=== PATIENT | female | born 1955 | race African-American/Black ===

== ENCOUNTER 2023-04-05 09:09 | Inpatient (IN) | payer OTHER ==
[2023-04-05] MEDS ORDERED: DIPHTH,PERTUSS(ACELL),TET 0.5 ML DISP.SYRIN IM ONE ×3 (09:58→10:27)
[2023-04-05 10:05] LABS: VENOUS BASE EXCESS 2.6 mmol/L (-2-2); VENOUS O2 SATURATION 56.5 % (70-80); VENOUS PCO2 56.2 mmHg (38-52); VENOUS PH 7.337 (7.310-7.410)
[2023-04-05 10:06] LABS: BASO % 0.9 % (0-2.0); EOS % 1.2 % (0-4.5); HEMATOCRIT 34.4 % (32.4-45.2); HEMOGLOBIN 10.8 GM/dL (10.7-15.3); LYMPH % 11.2 % (8-40); MCH 26.3 pg (25.7-33.7); MCHC 31.5 g/dl (32.0-36.0); MEAN CELL VOLUME 83.5 fl (80-96); MEAN PLT VOLUME 9.1 fl (7.5-11.1); MONO % 10.7 % (3.8-10.2); PLATELET COUNT 406 10^3/uL (134-434); RBC 4.12 M/mm3 (3.60-5.2); RDW 21.3 % (11.6-15.6)
[2023-04-05 10:19] LABS: CHLORIDE 95 mmol/L (98-107); POTASSIUM 3.7 mmol/L (3.5-5.1); SODIUM 137 mmol/L (136-145)
[2023-04-05 10:19] LABS: INR 1.24 (0.83-1.09); PROTHROMBIN TIME (PATIENT) 14.3 SEC (9.7-13.0)
[2023-04-05] MEDS ORDERED: ACETAMINOPHEN 1000 MG/100 ML BAG IVPB ONE (10:19)
[2023-04-05] MEDS ORDERED: ACETAMINOPHEN INJECTION 100 ML IVPB ONE (10:20)
[2023-04-05 10:21] LABS: ACTIVATED PTT 32.8 SECONDS (25.2-36.5)
[2023-04-05 10:21] LABS: CALCIUM 10.3 mg/dL (8.5-10.1)
[2023-04-05 10:23] LABS: ALBUMIN 2.6 g/dl (3.4-5.0); ANION GAP 13 MMOL/L (8-16); BLOOD UREA NITROGEN 63.9 mg/dL (7-18); CO2 30 mmol/L (21-32); GLUCOSE,RANDOM 108 mg/dL (74-106)
[2023-04-05 10:25] LABS: SGOT/AST 33 U/L (15-37); SGPT/ALT 27 U/L (13-61)
[2023-04-05 10:27] LABS: BILIRUBIN,TOTAL 0.3 mg/dL (0.2-1); TOT PROT 8.9 g/dl (6.4-8.2)
[2023-04-05 10:28] LABS: ALK PHOS 133 U/L (45-117)
[2023-04-05 10:37] LABS: CREATININE 7.6 mg/dL (0.55-1.3)
[2023-04-05] MEDS ORDERED: SODIUM CHLORIDE 250 ML IV PRN (16:14)
[2023-04-05] MEDS: ATORVASTATIN CA 40 MG TABLET (FP) PEG SCH (23:02)
[2023-04-06] MEDS ORDERED: PIPERACILLIN/TAZOB 2.25 GM 2.25 GM in DEXTROSE 5%-WATER - 50 ML IVPB SCH ×2 (02:45→06:15)
[2023-04-06] MEDS ORDERED: SODIUM CHLORIDE 1,000 ML IV STA (08:04)
[2023-04-06] MEDS ORDERED: SODIUM CHLORIDE 500 ML IV STA (09:15)
[2023-04-06] MEDS: SERTRALINE HCL 50 MG TABLET (FP) PEG SCH (09:28)
[2023-04-06] MEDS: valACYclovir HCL 500 MG TABLET (FP) PEG SCH (09:28)
[2023-04-06] MEDS ORDERED: levETIRAcetam 500 MG/5 ML ORAL SOLUTION (UNIT-DOSE CUPS) PEG SCH (10:00)
[2023-04-06 10:07] LABS: BASO % 1.9 % (0-2.0); EOS % 0.3 % (0-4.5); HEMATOCRIT 30.1 % (32.4-45.2); HEMOGLOBIN 9.3 GM/dL (10.7-15.3); LYMPH % 7.5 % (8-40); MCHC 30.8 g/dl (32.0-36.0); MEAN CELL VOLUME 84.4 fl (80-96); MONO % 4.4 % (3.8-10.2); NEUT % 85.9 % (42.8-82.8); PLATELET COUNT 268 10^3/uL (134-434); RBC 3.57 M/mm3 (3.60-5.2); RDW 21.2 % (11.6-15.6); WHITE BLOOD COUNT 10.6 K/mm3 (4.0-10.0)
[2023-04-06 10:36] LABS: POTASSIUM 3.4 mmol/L (3.5-5.1)
[2023-04-06 10:38] LABS: ALBUMIN 2.3 g/dl (3.4-5.0); CALCIUM 9.2 mg/dL (8.5-10.1)
[2023-04-06] MEDS ORDERED: SODIUM CHLORIDE 250 ML IV PRN (10:39)
[2023-04-06 10:41] LABS: CREATININE 4.5 mg/dL (0.55-1.3)
[2023-04-06 10:43] LABS: BILIRUBIN,TOTAL 0.4 mg/dL (0.2-1)
[2023-04-06 10:44] LABS: TOT PROT 7.4 g/dl (6.4-8.2)
[2023-04-06 11:28] LABS: BLOOD UREA NITROGEN 24.6 mg/dL (7-18)
[2023-04-06] MEDS: MEROPENEM 1 GM in DEXTROSE 5%-WATER 100 ML IVPB SCH (13:26)
[2023-04-06] MEDS: levETIRAcetam 500 MG/5 ML ORAL SOLUTION (UNIT-DOSE CUPS) PEG SCH (23:05)
[2023-04-06] MEDS: ATORVASTATIN CA 40 MG TABLET (FP) PEG SCH (23:05)
[2023-04-07] MEDS ORDERED: LACTATED RINGERS SOLUTION 1,000 ML/1,000 ML INFUS.BAG IV ONE (02:02)
[2023-04-07] MEDS ORDERED: SODIUM CHLORIDE 500 ML IV STA (03:01)
[2023-04-07 10:41] LABS: BASO % 0.7 % (0-2.0); EOS % 1.3 % (0-4.5); HEMATOCRIT 31.3 % (32.4-45.2); HEMOGLOBIN 9.5 GM/dL (10.7-15.3); LYMPH % 13.7 % (8-40); MCH 25.7 pg (25.7-33.7); MCHC 30.2 g/dl (32.0-36.0); MEAN CELL VOLUME 85.1 fl (80-96); MEAN PLT VOLUME 9.7 fl (7.5-11.1); MONO % 13.5 % (3.8-10.2); NEUT % 70.8 % (42.8-82.8); PLATELET COUNT 265 10^3/uL (134-434); RBC 3.67 M/mm3 (3.60-5.2); RDW 20.7 % (11.6-15.6); WHITE BLOOD COUNT 8.3 K/mm3 (4.0-10.0)
[2023-04-07 10:58] LABS: POTASSIUM 3.3 mmol/L (3.5-5.1)
[2023-04-07] MEDS: levETIRAcetam 500 MG/5 ML ORAL SOLUTION (UNIT-DOSE CUPS) PEG SCH ×2 (11:07→22:24)
[2023-04-07] MEDS: HEPARIN NA (PORCINE) 5,000 UNITS/ML 1ML VIAL SQ SCH ×2 (11:07→22:24)
[2023-04-07] MEDS: SERTRALINE HCL 50 MG TABLET (FP) PEG SCH (11:07)
[2023-04-07 11:08] LABS: ALBUMIN 2.2 g/dl (3.4-5.0); CALCIUM 9.3 mg/dL (8.5-10.1)
[2023-04-07] MEDS: MEROPENEM 1 GM in DEXTROSE 5%-WATER 100 ML IVPB SCH (11:08)
[2023-04-07] MEDS: valACYclovir HCL 500 MG TABLET (FP) PEG SCH (11:09)
[2023-04-07 11:12] LABS: CREATININE 6.1 mg/dL (0.55-1.3)
[2023-04-07 11:13] LABS: BILIRUBIN,TOTAL 0.5 mg/dL (0.2-1)
[2023-04-07] MEDS: ATORVASTATIN CA 40 MG TABLET (FP) PEG SCH (22:24)
[2023-04-08] MEDS ORDERED: SODIUM CHLORIDE 500 ML IV STA (01:26)
[2023-04-08] MEDS: SERTRALINE HCL 50 MG TABLET (FP) PEG SCH (09:08)
[2023-04-08] MEDS: MEROPENEM 1 GM in DEXTROSE 5%-WATER 100 ML IVPB SCH (09:08)
[2023-04-08 09:09] LABS: BASO % 0.7 % (0-2.0); HEMATOCRIT 32.3 % (32.4-45.2); HEMOGLOBIN 9.8 GM/dL (10.7-15.3); LYMPH % 18.1 % (8-40); MCH 25.4 pg (25.7-33.7); MCHC 30.2 g/dl (32.0-36.0); MEAN CELL VOLUME 84.1 fl (80-96); MEAN PLT VOLUME 9.7 fl (7.5-11.1); MONO % 12.4 % (3.8-10.2); NEUT % 66.8 % (42.8-82.8); PLATELET COUNT 305 10^3/uL (134-434); RBC 3.84 M/mm3 (3.60-5.2); RDW 20.6 % (11.6-15.6); WHITE BLOOD COUNT 5.9 K/mm3 (4.0-10.0)
[2023-04-08] MEDS: levETIRAcetam 500 MG/5 ML ORAL SOLUTION (UNIT-DOSE CUPS) PEG SCH ×2 (09:09→21:26)
[2023-04-08] MEDS: valACYclovir HCL 500 MG TABLET (FP) PEG SCH (09:09)
[2023-04-08] MEDS: HEPARIN NA (PORCINE) 5,000 UNITS/ML 1ML VIAL SQ SCH ×2 (09:09→21:26)
[2023-04-08 09:33] LABS: POTASSIUM 3.5 mmol/L (3.5-5.1)
[2023-04-08 09:54] LABS: ALBUMIN 2.3 g/dl (3.4-5.0); BLOOD UREA NITROGEN 19.2 mg/dL (7-18)
[2023-04-08 09:56] LABS: CALCIUM 9.9 mg/dL (8.5-10.1)
[2023-04-08 09:57] LABS: CREATININE 4.1 mg/dL (0.55-1.3)
[2023-04-08 09:58] LABS: BILIRUBIN,TOTAL 0.2 mg/dL (0.2-1); TOT PROT 7.5 g/dl (6.4-8.2)
[2023-04-08] MEDS ORDERED: SODIUM CHLORIDE 250 ML IV PRN (11:52)
[2023-04-08] MEDS: ATORVASTATIN CA 40 MG TABLET (FP) PEG SCH (21:26)
[2023-04-09] MEDS: MEROPENEM 1 GM in DEXTROSE 5%-WATER 100 ML IVPB SCH ×2 (10:00→11:22)
[2023-04-09] MEDS: SERTRALINE HCL 50 MG TABLET (FP) PEG SCH ×2 (10:00→11:21)
[2023-04-09] MEDS: valACYclovir HCL 500 MG TABLET (FP) PEG SCH ×2 (10:00→11:23)
[2023-04-09] MEDS: levETIRAcetam 500 MG/5 ML ORAL SOLUTION (UNIT-DOSE CUPS) PEG SCH ×3 (10:00→22:58)
[2023-04-09 14:02] LABS: HEMOGLOBIN 9.4 GM/dL (10.7-15.3); MCH 25.9 pg (25.7-33.7); MCHC 31.5 g/dl (32.0-36.0); MEAN CELL VOLUME 82.2 fl (80-96); MEAN PLT VOLUME 9.1 fl (7.5-11.1); PLATELET COUNT 327 10^3/uL (134-434); RBC 3.65 M/mm3 (3.60-5.2); RDW 20.8 % (11.6-15.6); WHITE BLOOD COUNT 9.1 K/mm3 (4.0-10.0)
[2023-04-09 14:24] LABS: POTASSIUM 3.2 mmol/L (3.5-5.1)
[2023-04-09 14:26] LABS: BLOOD UREA NITROGEN 35.2 mg/dL (7-18)
[2023-04-09] MEDS: HEPARIN NA (PORCINE) 5,000 UNITS/ML 1ML VIAL SQ SCH (22:58)
[2023-04-09] MEDS: ATORVASTATIN CA 40 MG TABLET (FP) PEG SCH (22:58)
[2023-04-10] MEDS: ACETAMINOPHEN 650 MG/20.3 ML ORAL SOLUTION (CUPS) GT PRN (09:20)
[2023-04-10] MEDS: levETIRAcetam 500 MG/5 ML ORAL SOLUTION (UNIT-DOSE CUPS) PEG SCH ×2 (09:20→21:38)
[2023-04-10] MEDS: MEROPENEM 1 GM in DEXTROSE 5%-WATER 100 ML IVPB SCH (09:21)
[2023-04-10] MEDS: SERTRALINE HCL 50 MG TABLET (FP) PEG SCH (09:21)
[2023-04-10] MEDS: valACYclovir HCL 500 MG TABLET (FP) PEG SCH (09:21)
[2023-04-10 11:57] LABS: HEMATOCRIT 30.2 % (32.4-45.2); HEMOGLOBIN 9.5 GM/dL (10.7-15.3); MCH 25.9 pg (25.7-33.7); MCHC 31.5 g/dl (32.0-36.0); MEAN CELL VOLUME 82.2 fl (80-96); MEAN PLT VOLUME 7.9 fl (7.5-11.1); PLATELET COUNT 313 10^3/uL (134-434); RBC 3.67 M/mm3 (3.60-5.2); RDW 20.9 % (11.6-15.6); WHITE BLOOD COUNT 6.8 K/mm3 (4.0-10.0)
[2023-04-10 12:13] LABS: POTASSIUM 3.6 mmol/L (3.5-5.1)
[2023-04-10 12:15] LABS: CALCIUM 10.1 mg/dL (8.5-10.1)
[2023-04-10 12:16] LABS: ALBUMIN 2.2 g/dl (3.4-5.0); BLOOD UREA NITROGEN 22.6 mg/dL (7-18)
[2023-04-10 12:18] LABS: CREATININE 4.4 mg/dL (0.55-1.3)
[2023-04-10 12:21] LABS: BILIRUBIN,TOTAL 0.7 mg/dL (0.2-1); TOT PROT 7.2 g/dl (6.4-8.2)
[2023-04-10 12:23] LABS: ANISOCYTOSIS 1+; MACROCYTOSIS 1+
[2023-04-10] MEDS: ATORVASTATIN CA 40 MG TABLET (FP) PEG SCH (21:38)
[2023-04-11] MEDS ORDERED: SODIUM CHLORIDE 250 ML IV PRN (09:48)
[2023-04-11] MEDS ORDERED: EPOETIN ALFA-EPBX 3,000 UNIT/ML VIAL SQ ONE (10:00)
[2023-04-11] MEDS ORDERED: ALTEPLASE (CATHFLO) 2 MG/2 ML VIAL CVP ONE ×2 (10:00→10:15)
[2023-04-11] MEDS: valACYclovir HCL 500 MG TABLET (FP) PEG SCH (10:49)
[2023-04-11] MEDS: SERTRALINE HCL 50 MG TABLET (FP) PEG SCH (10:49)
[2023-04-11] MEDS: levETIRAcetam 500 MG/5 ML ORAL SOLUTION (UNIT-DOSE CUPS) PEG SCH ×2 (10:49→22:14)
[2023-04-11] MEDS: MEROPENEM 1 GM in DEXTROSE 5%-WATER 100 ML IVPB SCH (10:50)
[2023-04-11 10:52] LABS: BASO % 0.6 % (0-2.0); EOS % 1.5 % (0-4.5); HEMATOCRIT 28.9 % (32.4-45.2); HEMOGLOBIN 8.9 GM/dL (10.7-15.3); LYMPH % 15.1 % (8-40); MCH 25.8 pg (25.7-33.7); MCHC 30.7 g/dl (32.0-36.0); MEAN CELL VOLUME 83.9 fl (80-96); MEAN PLT VOLUME 9.9 fl (7.5-11.1); MONO % 9.6 % (3.8-10.2); NEUT % 73.2 % (42.8-82.8); PLATELET COUNT 376 10^3/uL (134-434); RBC 3.45 M/mm3 (3.60-5.2); RDW 20.4 % (11.6-15.6); WHITE BLOOD COUNT 8.9 K/mm3 (4.0-10.0)
[2023-04-11 11:13] LABS: BLOOD UREA NITROGEN 35.1 mg/dL (7-18)
[2023-04-11 11:14] LABS: CALCIUM 10.2 mg/dL (8.5-10.1); CO2 31 mmol/L (21-32)
[2023-04-11 11:15] LABS: ALBUMIN 2.2 g/dl (3.4-5.0); GLUCOSE,RANDOM 87 mg/dL (74-106)
[2023-04-11 11:18] LABS: CREATININE 5.9 mg/dL (0.55-1.3); LDH 248 U/L (84-246); SGOT/AST 35 U/L (15-37); SGPT/ALT 18 U/L (13-61)
[2023-04-11 11:19] LABS: BILIRUBIN,TOTAL 0.4 mg/dL (0.2-1); TOT PROT 7.1 g/dl (6.4-8.2)
[2023-04-11 11:20] LABS: ALK PHOS 123 U/L (45-117)
[2023-04-11 12:25] LABS: CHLORIDE 100 mmol/L (98-107); POTASSIUM 3.9 mmol/L (3.5-5.1); SODIUM 137 mmol/L (136-145)
[2023-04-11 14:44] VITALS: BMI 21.1
[2023-04-11] MEDS: ALBUMIN HUMAN 25% 12.5 GM/50 ML VIAL IV SCH ×4 (15:56→18:05)
[2023-04-11] MEDS: ACETAMINOPHEN 650 MG/20.3 ML ORAL SOLUTION (CUPS) GT PRN (22:14)
[2023-04-11] MEDS: ATORVASTATIN CA 40 MG TABLET (FP) PEG SCH (22:14)
[2023-04-11] MEDS: HEPARIN NA (PORCINE) 5,000 UNITS/ML 1ML VIAL SQ SCH (22:15)
[2023-04-12] MEDS: ACETAMINOPHEN 650 MG/20.3 ML ORAL SOLUTION (CUPS) GT PRN (08:52)
[2023-04-12 09:47] LABS: BASO % 0.7 % (0-2.0); EOS % 1.5 % (0-4.5); HEMATOCRIT 30.4 % (32.4-45.2); HEMOGLOBIN 9.5 GM/dL (10.7-15.3); LYMPH % 18.5 % (8-40); MCH 25.6 pg (25.7-33.7); MCHC 31.2 g/dl (32.0-36.0); MEAN CELL VOLUME 82.1 fl (80-96); MEAN PLT VOLUME 9.1 fl (7.5-11.1); MONO % 11.3 % (3.8-10.2); PLATELET COUNT 362 10^3/uL (134-434); RBC 3.71 M/mm3 (3.60-5.2); RDW 20.7 % (11.6-15.6); WHITE BLOOD COUNT 6.6 K/mm3 (4.0-10.0)
[2023-04-12 10:26] LABS: POTASSIUM 3.9 mmol/L (3.5-5.1)
[2023-04-12 10:28] LABS: CALCIUM 9.8 mg/dL (8.5-10.1)
[2023-04-12 10:29] LABS: ALBUMIN 2.5 g/dl (3.4-5.0); BLOOD UREA NITROGEN 17.2 mg/dL (7-18)
[2023-04-12 10:32] LABS: CREATININE 3.5 mg/dL (0.55-1.3)
[2023-04-12 10:33] LABS: BILIRUBIN,TOTAL 0.2 mg/dL (0.2-1); TOT PROT 7.1 g/dl (6.4-8.2)
[2023-04-12] MEDS: MEROPENEM 1 GM in DEXTROSE 5%-WATER 100 ML IVPB SCH (10:52)
[2023-04-12] MEDS: valACYclovir HCL 500 MG TABLET (FP) PEG SCH (10:52)
[2023-04-12] MEDS: APIXABAN 5 MG TABLET PEG SCH ×2 (10:52→21:32)
[2023-04-12] MEDS: SERTRALINE HCL 50 MG TABLET (FP) PEG SCH (10:52)
[2023-04-12] MEDS: levETIRAcetam 500 MG/5 ML ORAL SOLUTION (UNIT-DOSE CUPS) PEG SCH ×2 (10:52→21:32)
[2023-04-12] MEDS: CEFTRIAXONE 1 GM in DEXTROSE 5%-WATER - 50 ML IVPB SCH (12:40)
[2023-04-12 14:01] LABS: BF WBC & OTHER NUCLEATED CELLS 353 /mm3; BODY FLUID MACROPHAGES 12 %; BODY FLUID MESOTHELIAL 1 %; BODY FLUID MONOCYTE 18 %
[2023-04-12] MEDS: ATORVASTATIN CA 40 MG TABLET (FP) PEG SCH (21:32)
[2023-04-13] MEDS: APIXABAN 5 MG TABLET PEG SCH ×2 (09:14→23:27)
[2023-04-13] MEDS: valACYclovir HCL 500 MG TABLET (FP) PEG SCH (09:14)
[2023-04-13] MEDS: SERTRALINE HCL 50 MG TABLET (FP) PEG SCH (09:14)
[2023-04-13] MEDS: levETIRAcetam 500 MG/5 ML ORAL SOLUTION (UNIT-DOSE CUPS) PEG SCH ×2 (09:14→23:27)
[2023-04-13] MEDS: CEFTRIAXONE 1 GM in DEXTROSE 5%-WATER - 50 ML IVPB SCH (09:15)
[2023-04-13] MEDS: ALBUTEROL SO4 2.5/IPRATROPIUM 0.5 INH SOL 3 ML VIAL.NEB. NEB SCH ×2 (15:57→20:13)
[2023-04-13] MEDS: ATORVASTATIN CA 40 MG TABLET (FP) PEG SCH (23:27)
[2023-04-14] MEDS: ALBUTEROL SO4 2.5/IPRATROPIUM 0.5 INH SOL 3 ML VIAL.NEB. NEB SCH ×4 (07:45→20:08)
[2023-04-14 09:34] LABS: BASO % 1.5 % (0-2.0); EOS % 2.1 % (0-4.5); HEMATOCRIT 29.2 % (32.4-45.2); HEMOGLOBIN 9.1 GM/dL (10.7-15.3); LYMPH % 10.8 % (8-40); MCH 25.8 pg (25.7-33.7); MCHC 31.1 g/dl (32.0-36.0); MEAN CELL VOLUME 83.2 fl (80-96); MONO % 7.2 % (3.8-10.2); NEUT % 78.4 % (42.8-82.8); PLATELET COUNT 461 10^3/uL (134-434); RBC 3.51 M/mm3 (3.60-5.2); RDW 20.6 % (11.6-15.6); WHITE BLOOD COUNT 8.1 K/mm3 (4.0-10.0)
[2023-04-14] MEDS ORDERED: EPOETIN ALFA-EPBX 3,000 UNIT/ML VIAL IVPUSH ONE (09:45)
[2023-04-14 09:47] LABS: POTASSIUM 4.3 mmol/L (3.5-5.1)
[2023-04-14 10:01] LABS: BILIRUBIN,TOTAL 0.3 mg/dL (0.2-1)
[2023-04-14 10:02] LABS: TOT PROT 6.9 g/dl (6.4-8.2)
[2023-04-14 10:03] LABS: CALCIUM 10.3 mg/dL (8.5-10.1)
[2023-04-14 10:04] LABS: ALBUMIN 2.2 g/dl (3.4-5.0); BLOOD UREA NITROGEN 50.1 mg/dL (7-18); CREATININE 6.8 mg/dL (0.55-1.3)
[2023-04-14] MEDS: SERTRALINE HCL 50 MG TABLET (FP) PEG SCH (11:02)
[2023-04-14] MEDS: valACYclovir HCL 500 MG TABLET (FP) PEG SCH (11:02)
[2023-04-14] MEDS: APIXABAN 5 MG TABLET PEG SCH ×2 (11:02→22:18)
[2023-04-14] MEDS: CEFTRIAXONE 1 GM in DEXTROSE 5%-WATER - 50 ML IVPB SCH (11:02)
[2023-04-14] MEDS: levETIRAcetam 500 MG/5 ML ORAL SOLUTION (UNIT-DOSE CUPS) PEG SCH ×2 (11:02→22:18)
[2023-04-14 11:10] LABS: BODY FLUID ALBUMIN 0.9 g/dL (Not Estab.)
[2023-04-14 11:18] LABS: ANISOCYTOSIS 1+; MACROCYTOSIS 0
[2023-04-14] MEDS: ATORVASTATIN CA 40 MG TABLET (FP) PEG SCH (22:18)
[2023-04-15] MEDS: ALBUTEROL SO4 2.5/IPRATROPIUM 0.5 INH SOL 3 ML VIAL.NEB. NEB SCH ×4 (07:52→21:05)
[2023-04-15 08:58] LABS: BASO % 0.6 % (0-2.0); EOS % 2.4 % (0-4.5); HEMATOCRIT 27.7 % (32.4-45.2); HEMOGLOBIN 8.8 GM/dL (10.7-15.3); LYMPH % 17.2 % (8-40); MCH 26.1 pg (25.7-33.7); MCHC 31.7 g/dl (32.0-36.0); MEAN CELL VOLUME 82.2 fl (80-96); MONO % 8.9 % (3.8-10.2); NEUT % 70.9 % (42.8-82.8); PLATELET COUNT 489 10^3/uL (134-434); RBC 3.37 M/mm3 (3.60-5.2); RDW 20.4 % (11.6-15.6); WHITE BLOOD COUNT 8.2 K/mm3 (4.0-10.0)
[2023-04-15 09:18] LABS: POTASSIUM 3.9 mmol/L (3.5-5.1)
[2023-04-15 09:24] LABS: CALCIUM 9.7 mg/dL (8.5-10.1)
[2023-04-15 09:25] LABS: ALBUMIN 2.5 g/dl (3.4-5.0)
[2023-04-15 09:28] LABS: CREATININE 3.9 mg/dL (0.55-1.3)
[2023-04-15 09:30] LABS: BILIRUBIN,TOTAL 0.2 mg/dL (0.2-1); TOT PROT 7.2 g/dl (6.4-8.2)
[2023-04-15 09:43] LABS: BLOOD UREA NITROGEN 22.5 mg/dL (7-18)
[2023-04-15] MEDS: valACYclovir HCL 500 MG TABLET (FP) PEG SCH (09:46)
[2023-04-15] MEDS: SERTRALINE HCL 50 MG TABLET (FP) PEG SCH (09:46)
[2023-04-15] MEDS: APIXABAN 5 MG TABLET PEG SCH ×2 (09:47→21:23)
[2023-04-15] MEDS: levETIRAcetam 500 MG/5 ML ORAL SOLUTION (UNIT-DOSE CUPS) PEG SCH ×2 (09:47→21:22)
[2023-04-15] MEDS: ATORVASTATIN CA 40 MG TABLET (FP) PEG SCH (21:22)
[2023-04-16] MEDS ORDERED: SODIUM CHLORIDE 250 ML IV PRN (07:02)
[2023-04-16] MEDS: ALBUTEROL SO4 2.5/IPRATROPIUM 0.5 INH SOL 3 ML VIAL.NEB. NEB SCH ×4 (08:20→20:13)
[2023-04-16] MEDS: SERTRALINE HCL 50 MG TABLET (FP) PEG SCH (09:04)
[2023-04-16] MEDS: APIXABAN 5 MG TABLET PEG SCH ×2 (09:04→23:03)
[2023-04-16] MEDS: valACYclovir HCL 500 MG TABLET (FP) PEG SCH (09:04)
[2023-04-16] MEDS: levETIRAcetam 500 MG/5 ML ORAL SOLUTION (UNIT-DOSE CUPS) PEG SCH ×2 (09:05→23:03)
[2023-04-16 10:24] LABS: BASO % 0.4 % (0-2.0); EOS % 1.6 % (0-4.5); HEMATOCRIT 26.5 % (32.4-45.2); HEMOGLOBIN 8.5 GM/dL (10.7-15.3); LYMPH % 13.7 % (8-40); MCH 26.4 pg (25.7-33.7); MCHC 32.1 g/dl (32.0-36.0); MEAN CELL VOLUME 82.3 fl (80-96); MONO % 8.2 % (3.8-10.2); NEUT % 76.1 % (42.8-82.8); PLATELET COUNT 482 10^3/uL (134-434); RBC 3.22 M/mm3 (3.60-5.2); RDW 21.3 % (11.6-15.6); WHITE BLOOD COUNT 8.8 K/mm3 (4.0-10.0)
[2023-04-16] MEDS: ACETAMINOPHEN 650 MG/20.3 ML ORAL SOLUTION (CUPS) GT PRN (10:25)
[2023-04-16 10:38] LABS: POTASSIUM 4.4 mmol/L (3.5-5.1)
[2023-04-16 10:43] LABS: ALBUMIN 2.4 g/dl (3.4-5.0); BLOOD UREA NITROGEN 43.8 mg/dL (7-18); CALCIUM 10.1 mg/dL (8.5-10.1)
[2023-04-16 10:47] LABS: CREATININE 5.6 mg/dL (0.55-1.3)
[2023-04-16 10:48] LABS: BILIRUBIN,TOTAL 0.2 mg/dL (0.2-1); TOT PROT 6.9 g/dl (6.4-8.2)
[2023-04-16] MEDS ORDERED: EPOETIN ALFA-EPBX 3,000 UNIT/ML VIAL IVPUSH ONE (15:00)
[2023-04-16 21:48] VITALS: RESP 20
[2023-04-16] MEDS: ATORVASTATIN CA 40 MG TABLET (FP) PEG SCH (23:03)
[2023-04-17] MEDS: ALBUTEROL SO4 2.5/IPRATROPIUM 0.5 INH SOL 3 ML VIAL.NEB. NEB SCH ×3 (07:30→15:45)
[2023-04-17] MEDS: levETIRAcetam 500 MG/5 ML ORAL SOLUTION (UNIT-DOSE CUPS) PEG SCH (09:05)
[2023-04-17] MEDS: APIXABAN 5 MG TABLET PEG SCH (09:06)
[2023-04-17] MEDS: valACYclovir HCL 500 MG TABLET (FP) PEG SCH (09:06)
[2023-04-17] MEDS: SERTRALINE HCL 50 MG TABLET (FP) PEG SCH (09:06)
[2023-04-17 11:33] VITALS: TEMP 98.7
[2023-04-17 13:47] VITALS: BP 97/63
[2023-04-17 15:50] VITALS: PULSE 105
[2023-04-17 16:10] LABS: HEMOGLOBIN 8.4 GM/dL (10.7-15.3); MCHC 31.2 g/dl (32.0-36.0); MEAN CELL VOLUME 83.3 fl (80-96); MEAN PLT VOLUME 9.5 fl (7.5-11.1); PLATELET COUNT 538 10^3/uL (134-434); RBC 3.25 M/mm3 (3.60-5.2); RDW 20.2 % (11.6-15.6); WHITE BLOOD COUNT 8.5 K/mm3 (4.0-10.0)
[2023-04-17 16:50] LABS: POTASSIUM 4.1 mmol/L (3.5-5.1)
[2023-04-17 16:52] LABS: CALCIUM 10.3 mg/dL (8.5-10.1)
[2023-04-17 16:53] LABS: ALBUMIN 2.6 g/dl (3.4-5.0); BLOOD UREA NITROGEN 27.4 mg/dL (7-18)
[2023-04-17 16:58] LABS: BILIRUBIN,TOTAL 0.3 mg/dL (0.2-1); TOT PROT 7.4 g/dl (6.4-8.2)
== END 2023-04-17 17:05 | DRG 314 ==
LOC: JER 09:09 → JERBED 13:26 → J6S 17:17 → OBSVTOIN 04-07 10:19
PROVIDERS: ADMIT Internal Medicine; ATTEND Internal Medicine
PROC: 5A1D70Z Performance of Urinary Filtration, Intermittent, Less than 6 Hours Per Day (ICD-10-PCS; 2023-04-05)
PROC: 5A1D70Z Performance of Urinary Filtration, Intermittent, Less than 6 Hours Per Day (ICD-10-PCS; 2023-04-07)
PROC: 5A1D70Z Performance of Urinary Filtration, Intermittent, Less than 6 Hours Per Day (ICD-10-PCS; 2023-04-09)
PROC: 5A1D70Z Performance of Urinary Filtration, Intermittent, Less than 6 Hours Per Day (ICD-10-PCS; 2023-04-11)
PROC: 0W993ZZ Drainage of Right Pleural Cavity, Percutaneous Approach (ICD-10-PCS; principal; 2023-04-14)
PROC: 5A1D70Z Performance of Urinary Filtration, Intermittent, Less than 6 Hours Per Day (ICD-10-PCS; 2023-04-14)
PROC: 5A1D70Z Performance of Urinary Filtration, Intermittent, Less than 6 Hours Per Day (ICD-10-PCS; 2023-04-16)
DX: T82.7XXA Infection and inflammatory reaction due to other cardiac and vascular devices, implants and grafts, initial encounter (principal); A41.59 Other Gram-negative sepsis; N18.6 End stage renal disease; J18.9 Pneumonia, unspecified organism; J96.11 Chronic respiratory failure with hypoxia; J90 Pleural effusion, not elsewhere classified; J98.11 Atelectasis; I12.0 Hypertensive chronic kidney disease with stage 5 chronic kidney disease or end stage renal disease; N17.9 Acute kidney failure, unspecified; I69.359 Hemiplegia and hemiparesis following cerebral infarction affecting unspecified side; S01.81XA Laceration without foreign body of other part of head, initial encounter; I69.391 Dysphagia following cerebral infarction; I69.320 Aphasia following cerebral infarction; E03.9 Hypothyroidism, unspecified; E83.52 Hypercalcemia; I95.9 Hypotension, unspecified; D75.838 Other thrombocytosis; E78.5 Hyperlipidemia, unspecified; D64.9 Anemia, unspecified; G40.909 Epilepsy, unspecified, not intractable, without status epilepticus; Y84.8 Other medical procedures as the cause of abnormal reaction of the patient, or of later complication, without mention of misadventure at the time of the procedure; Z93.0 Tracheostomy status; Z93.1 Gastrostomy status; Z99.2 Dependence on renal dialysis; Z79.01 Long term (current) use of anticoagulants; Z98.2 Presence of cerebrospinal fluid drainage device; W18.39XA Other fall on same level, initial encounter; Y92.098 Other place in other non-institutional residence as the place of occurrence of the external cause
CPT/HCPCS: 0241U-QW; 36415; 70450-TC; 71045-TC-FY; 71046-TC-FY; 71250-TC; 72125-TC; 73521-TC-FY; 76942; 80048; 80053; 82042; 82150; 82310; 82465; 82550; 82803; 82945; 83605; 83615; 83970; 83986; 84157; 84478; 84484; 85025; 85027; 85610; 85730; 86803; 86850; 86870; 86900; 86901; 86902; 87040; 87070; 87075; 87077; 87102; 87116; 87186; 87205; 87206; 87210; 87340; 88108; 88305-TC; 90715; 93005; 93010; 94640; 97116-GP; 97162-GP; 99285-25; G0378; J1644; J2997; P9047; Q5106

== ENCOUNTER 2023-04-25 01:38 | Emergency (ER) | payer OTHER ==
[2023-04-25 01:46] VITALS: BMI 21.9
[2023-04-25 06:07] VITALS: BP 175/144; RESP 18; TEMP 98.4
[2023-04-25 13:02] VITALS: PULSE 83
== END 2023-04-25 13:47 | disposition home or self-care (01) ==
LOC: JER 01:38
PROC: 0B21XFZ Change Tracheostomy Device in Trachea, External Approach (ICD-10-PCS; principal; 2023-04-25)
DX: Z43.0 Encounter for attention to tracheostomy (principal)
CPT/HCPCS: 31502; 99284-25

== ENCOUNTER 2023-05-07 09:05 | Inpatient (IN) | payer OTHER ==
[2023-05-07 12:03] LABS: INR 1.12 (0.83-1.09)
[2023-05-07 12:20] LABS: CHLORIDE 99 mmol/L (98-107); SODIUM 136 mmol/L (136-145)
[2023-05-07 12:23] LABS: CALCIUM 9.6 mg/dL (8.5-10.1)
[2023-05-07 12:24] LABS: ALBUMIN 2.3 g/dl (3.4-5.0); BLOOD UREA NITROGEN 78.7 mg/dL (7-18); CO2 26 mmol/L (21-32); GLUCOSE,RANDOM 104 mg/dL (74-106)
[2023-05-07 12:27] LABS: CREATININE 6.2 mg/dL (0.55-1.3); SGOT/AST 26 U/L (15-37); SGPT/ALT 19 U/L (13-61)
[2023-05-07 12:28] LABS: BILIRUBIN,TOTAL 0.2 mg/dL (0.2-1)
[2023-05-07 12:29] LABS: ALK PHOS 81 U/L (45-117); ANION GAP 11 MMOL/L (8-16); POTASSIUM 2.9 mmol/L (3.5-5.1)
[2023-05-07] MEDS ORDERED: POTASSIUM CHLORIDE TABS 10 MEQ TABLET.ER (FP) NR ONE (12:42)
[2023-05-07] MEDS ORDERED: POTASSIUM CHLORIDE ORAL LIQUID 20 MEQ/15 ML PEG ONE ×2 (12:43→22:13)
[2023-05-07 13:21] LABS: BASO % 0.4 % (0-2.0); EOS % 1.9 % (0-4.5); HEMATOCRIT 14.3 % (32.4-45.2); LYMPH % 11.3 % (8-40); MCH 27.3 pg (25.7-33.7); MCHC 32.2 g/dl (32.0-36.0); MEAN CELL VOLUME 84.8 fl (80-96); MEAN PLT VOLUME 8.6 fl (7.5-11.1); MONO % 9.6 % (3.8-10.2); NEUT % 76.8 % (42.8-82.8); PLATELET COUNT 377 10^3/uL (134-434); RBC 1.68 M/mm3 (3.60-5.2); RDW 21.9 % (11.6-15.6)
[2023-05-07 13:27] LABS: HEMOGLOBIN 4.6 GM/dL (10.7-15.3)
[2023-05-07] MEDS ORDERED: POTASSIUM CHLORIDE ORAL LIQUID 20 MEQ/15 ML ONE (13:42)
[2023-05-07] MEDS ORDERED: PANTOPRAZOLE SODIUM 40 MG VIAL IVPUSH ONE (13:50)
[2023-05-07 15:00] LABS: ANISOCYTOSIS 2+; MACROCYTOSIS 1+; OVALOCYTE 1+; ROULEAU 1+; TARGET CELLS 2+
[2023-05-07] MEDS ORDERED: PANTOPRAZOLE SODIUM 40 MG VIAL ONE (15:18)
[2023-05-07] MEDS ORDERED: PANTOPRAZOLE SODIUM 40 MG/100 ML BAG IVPB ONE (15:18)
[2023-05-07] MEDS ORDERED: HUM PROTHROMBIN CPLX(PCC)4FACT 1,000 UNIT/40 ML VIAL IVPB ONE (15:23)
[2023-05-07] MEDS ORDERED: PHYTONADIONE 10 MG/1 ML AMP IVPB ONE (15:24)
[2023-05-07] MEDS ORDERED: PROTHROMBIN COMPLEX CONCENTRATE IVPB ONE (15:45)
[2023-05-07] MEDS ORDERED: KCL 10 MEQ IVPB 10 MEQ/100 ML INFUS.BAG IVPB SCH (16:00)
[2023-05-07] MEDS ORDERED: PHYTONADIONE 10 MG/1 ML AMP ONE (17:27)
[2023-05-07 20:27] LABS: BASO % 0.4 % (0-2.0); EOS % 1.3 % (0-4.5); HEMATOCRIT 16.6 % (32.4-45.2); LYMPH % 15.1 % (8-40); MCH 27.4 pg (25.7-33.7); MEAN CELL VOLUME 85.7 fl (80-96); MEAN PLT VOLUME 8.3 fl (7.5-11.1); MONO % 8.1 % (3.8-10.2); NEUT % 75.1 % (42.8-82.8); PLATELET COUNT 399 10^3/uL (134-434); RBC 1.94 M/mm3 (3.60-5.2); RDW 22.7 % (11.6-15.6)
[2023-05-07 20:30] LABS: HEMOGLOBIN 5.3 GM/dL (10.7-15.3)
[2023-05-07] MEDS: levETIRAcetam 500 MG/5 ML ORAL SOLUTION (UNIT-DOSE CUPS) PEG SCH (22:16)
[2023-05-08] MEDS: PANTOPRAZOLE SODIUM 80 MG in SODIUM CHLORIDE 100 ML IVPB SCH ×4 (04:38→22:38)
[2023-05-08] MEDS: valACYclovir HCL 500 MG TABLET (FP) PEG SCH (11:00)
[2023-05-08] MEDS: levETIRAcetam 500 MG/5 ML ORAL SOLUTION (UNIT-DOSE CUPS) PEG SCH ×2 (11:00→21:23)
[2023-05-08] MEDS ORDERED: SODIUM CHLORIDE 250 ML IV PRN (11:35)
[2023-05-08] MEDS ORDERED: EPOETIN ALFA-EPBX 4,000 UNIT/ML VIAL IVPUSH ONE (12:30)
[2023-05-08 14:36] LABS: HEMATOCRIT 22.1 % (32.4-45.2); HEMOGLOBIN 7.1 GM/dL (10.7-15.3); MCH 27.4 pg (25.7-33.7); MCHC 32.4 g/dl (32.0-36.0); MEAN CELL VOLUME 84.8 fl (80-96); MEAN PLT VOLUME 8.4 fl (7.5-11.1); PLATELET COUNT 387 10^3/uL (134-434); RDW 18.9 % (11.6-15.6); WHITE BLOOD COUNT 12.9 K/mm3 (4.0-10.0)
[2023-05-08 17:24] LABS: ANISOCYTOSIS 1+; MACROCYTOSIS 1+; OVALOCYTE 1+
[2023-05-08 17:36] LABS: MAGNESIUM 2.6 mg/dL (1.8-2.4)
[2023-05-08 17:39] LABS: PHOSPHOROUS 2.3 mg/dL (2.5-4.9)
[2023-05-08 17:40] LABS: CHOLESTEROL 131 mg/dL (50-200); LDL CHOLESTEROL (ONLY SJRH) 69 mg/dL (5-100)
[2023-05-08 17:43] LABS: HDL CHOLESTEROL 43 mg/dL (40-60)
[2023-05-08 20:48] LABS: POTASSIUM 3.7 mmol/L (3.5-5.1)
[2023-05-08 20:50] LABS: CALCIUM 9.1 mg/dL (8.5-10.1)
[2023-05-08 20:51] LABS: ALBUMIN 2.4 g/dl (3.4-5.0)
[2023-05-08 20:54] LABS: CREATININE 2.7 mg/dL (0.55-1.3)
[2023-05-08 20:55] LABS: BILIRUBIN,TOTAL 0.4 mg/dL (0.2-1); TOT PROT 7.1 g/dl (6.4-8.2)
[2023-05-08 21:11] LABS: BLOOD UREA NITROGEN 22.1 mg/dL (7-18)
[2023-05-09] MEDS: PANTOPRAZOLE SODIUM 80 MG in SODIUM CHLORIDE 100 ML IVPB SCH ×2 (06:52→18:01)
[2023-05-09 08:48] LABS: HEMATOCRIT 20.7 % (32.4-45.2); MCH 29.4 pg (25.7-33.7); MCHC 34.1 g/dl (32.0-36.0); MEAN CELL VOLUME 86.1 fl (80-96); MEAN PLT VOLUME 8.6 fl (7.5-11.1); PLATELET COUNT 389 10^3/uL (134-434); RDW 19.2 % (11.6-15.6); WHITE BLOOD COUNT 9.5 K/mm3 (4.0-10.0)
[2023-05-09] MEDS: valACYclovir HCL 500 MG TABLET (FP) PEG SCH (11:08)
[2023-05-09] MEDS: levETIRAcetam 500 MG/5 ML ORAL SOLUTION (UNIT-DOSE CUPS) PEG SCH ×2 (11:08→21:28)
[2023-05-10] MEDS: PANTOPRAZOLE SODIUM 80 MG in SODIUM CHLORIDE 100 ML IVPB SCH ×2 (04:27→14:54)
[2023-05-10 09:42] LABS: HEMATOCRIT 25.3 % (32.4-45.2); HEMOGLOBIN 8.6 GM/dL (10.7-15.3); MCHC 34.1 g/dl (32.0-36.0); MEAN CELL VOLUME 84.9 fl (80-96); MEAN PLT VOLUME 7.9 fl (7.5-11.1); PLATELET COUNT 395 10^3/uL (134-434); RBC 2.98 M/mm3 (3.60-5.2); RDW 18.4 % (11.6-15.6); WHITE BLOOD COUNT 9.9 K/mm3 (4.0-10.0)
[2023-05-10] MEDS: levETIRAcetam 500 MG/5 ML ORAL SOLUTION (UNIT-DOSE CUPS) PEG SCH ×2 (10:00→22:28)
[2023-05-10] MEDS: valACYclovir HCL 500 MG TABLET (FP) PEG SCH (10:00)
[2023-05-10 10:04] LABS: POTASSIUM 3.8 mmol/L (3.5-5.1)
[2023-05-10 10:06] LABS: BLOOD UREA NITROGEN 35.9 mg/dL (7-18)
[2023-05-10 10:07] LABS: ALBUMIN 2.2 g/dl (3.4-5.0)
[2023-05-10 10:09] LABS: CREATININE 5.6 mg/dL (0.55-1.3)
[2023-05-10 10:10] LABS: BILIRUBIN,TOTAL 0.8 mg/dL (0.2-1); TOT PROT 7.1 g/dl (6.4-8.2)
[2023-05-10] MEDS ORDERED: SODIUM CHLORIDE 250 ML IV PRN (10:35)
[2023-05-10] MEDS ORDERED: EPOETIN ALFA-EPBX 10,000 UNIT/ML VIAL SQ ONE (11:00)
[2023-05-10] MEDS: risperiDONE 0.25 MG TABLET GT SCH (12:42)
[2023-05-10] MEDS: PANTOPRAZOLE SODIUM 40 MG VIAL IVPUSH SCH (22:28)
[2023-05-11] MEDS: levETIRAcetam 500 MG/5 ML ORAL SOLUTION (UNIT-DOSE CUPS) PEG SCH ×2 (10:08→21:41)
[2023-05-11] MEDS: risperiDONE 0.25 MG TABLET GT SCH (10:09)
[2023-05-11] MEDS: PANTOPRAZOLE SODIUM 40 MG VIAL IVPUSH SCH ×2 (10:09→21:41)
[2023-05-11] MEDS: valACYclovir HCL 500 MG TABLET (FP) PEG SCH (10:09)
[2023-05-11 12:46] LABS: BASO % 0.3 % (0-2.0); EOS % 1.6 % (0-4.5); HEMATOCRIT 29.4 % (32.4-45.2); HEMOGLOBIN 9.9 GM/dL (10.7-15.3); LYMPH % 10.6 % (8-40); MCH 29.2 pg (25.7-33.7); MCHC 33.7 g/dl (32.0-36.0); MEAN CELL VOLUME 86.8 fl (80-96); MONO % 12.1 % (3.8-10.2); NEUT % 75.4 % (42.8-82.8); PLATELET COUNT 513 10^3/uL (134-434); RBC 3.38 M/mm3 (3.60-5.2); RDW 18.8 % (11.6-15.6)
[2023-05-11 13:04] LABS: POTASSIUM 3.7 mmol/L (3.5-5.1)
[2023-05-11 13:08] LABS: CALCIUM 8.9 mg/dL (8.5-10.1)
[2023-05-11 13:09] LABS: BLOOD UREA NITROGEN 17.9 mg/dL (7-18)
[2023-05-11 13:11] LABS: CREATININE 4.2 mg/dL (0.55-1.3)
[2023-05-12 08:14] LABS: BASO % 0.4 % (0-2.0); EOS % 3.4 % (0-4.5); HEMATOCRIT 30.4 % (32.4-45.2); HEMOGLOBIN 10.3 GM/dL (10.7-15.3); LYMPH % 11.4 % (8-40); MCH 29.2 pg (25.7-33.7); MCHC 33.7 g/dl (32.0-36.0); MEAN CELL VOLUME 86.6 fl (80-96); MEAN PLT VOLUME 7.6 fl (7.5-11.1); MONO % 14.2 % (3.8-10.2); NEUT % 70.6 % (42.8-82.8); PLATELET COUNT 455 10^3/uL (134-434); RBC 3.51 M/mm3 (3.60-5.2); RDW 18.9 % (11.6-15.6); WHITE BLOOD COUNT 9.7 K/mm3 (4.0-10.0)
[2023-05-12 08:31] LABS: POTASSIUM 3.6 mmol/L (3.5-5.1)
[2023-05-12 08:40] LABS: ALBUMIN 2.3 g/dl (3.4-5.0); BLOOD UREA NITROGEN 21.1 mg/dL (7-18); CALCIUM 8.4 mg/dL (8.5-10.1); MAGNESIUM 1.9 mg/dL (1.8-2.4)
[2023-05-12 08:42] LABS: CREATININE 5.1 mg/dL (0.55-1.3); PHOSPHOROUS 2.7 mg/dL (2.5-4.9)
[2023-05-12 08:44] LABS: TOT PROT 7.2 g/dl (6.4-8.2)
[2023-05-12 08:47] LABS: BILIRUBIN,TOTAL 0.6 mg/dL (0.2-1)
[2023-05-12] MEDS: PANTOPRAZOLE SODIUM 40 MG VIAL IVPUSH SCH ×2 (09:42→21:55)
[2023-05-12] MEDS: risperiDONE 0.25 MG TABLET GT SCH (09:42)
[2023-05-12] MEDS: valACYclovir HCL 500 MG TABLET (FP) PEG SCH (09:42)
[2023-05-12] MEDS: levETIRAcetam 500 MG/5 ML ORAL SOLUTION (UNIT-DOSE CUPS) PEG SCH ×2 (09:42→21:55)
[2023-05-12 15:47] VITALS: BMI 22.6
[2023-05-12] MEDS ORDERED: LORazepam 2 MG/ML SDV VIAL IVPUSH ONE (16:50)
[2023-05-12 17:31] LABS: ALLENS TEST POSITIVE; ARTERIAL BLD GAS O2 SATURATION 95.5 % (95-98); ARTERIAL BLOOD GAS BASE EXCESS 4.6 mmol/L (-2-2); ARTERIAL BLOOD GAS PO2 73.8 mmHg (80-100)
[2023-05-13] MEDS: AMINO ACIDS/PROTEIN HYDROLYS 30 ML LIQUID.PKT PEG SCH (08:37)
[2023-05-13 10:20] LABS: POTASSIUM 4.2 mmol/L (3.5-5.1)
[2023-05-13 10:22] LABS: BLOOD UREA NITROGEN 33.3 mg/dL (7-18); CALCIUM 9.1 mg/dL (8.5-10.1)
[2023-05-13 10:26] LABS: CREATININE 6.6 mg/dL (0.55-1.3)
[2023-05-13] MEDS: levETIRAcetam 500 MG/5 ML ORAL SOLUTION (UNIT-DOSE CUPS) PEG SCH ×2 (14:25→23:22)
[2023-05-13] MEDS: valACYclovir HCL 500 MG TABLET (FP) PEG SCH (14:25)
[2023-05-13] MEDS: VITAMIN B COMP W-C 1 EA TABLET (NEPHRO-VITE) GT SCH (14:25)
[2023-05-13] MEDS: PANTOPRAZOLE SODIUM 40 MG VIAL IVPUSH SCH (14:25)
[2023-05-13] MEDS: risperiDONE 0.25 MG TABLET GT SCH (15:16)
[2023-05-13] MEDS ORDERED: SODIUM CHLORIDE 250 ML IV PRN (16:39)
[2023-05-13] MEDS ORDERED: PANTOPRAZOLE 40 MG TABLET PO SCH (22:00)
[2023-05-13] MEDS ORDERED: PANTOPRAZOLE SODIUM 40 MG VIAL IVPUSH SCH (22:00)
[2023-05-13] MEDS ORDERED: ATORVASTATIN CA 10 MG TABLET (FP) PO SCH (22:00)
[2023-05-13] MEDS: ATORVASTATIN CA 40 MG TABLET (FP) PEG SCH (23:22)
[2023-05-14 08:53] LABS: BASO % 0.4 % (0-2.0); EOS % 2.9 % (0-4.5); HEMOGLOBIN 8.5 GM/dL (10.7-15.3); LYMPH % 13.5 % (8-40); MCH 28.9 pg (25.7-33.7); MCHC 32.8 g/dl (32.0-36.0); MEAN CELL VOLUME 88.4 fl (80-96); MEAN PLT VOLUME 7.8 fl (7.5-11.1); MONO % 10.9 % (3.8-10.2); NEUT % 72.3 % (42.8-82.8); PLATELET COUNT 405 10^3/uL (134-434); RBC 2.95 M/mm3 (3.60-5.2); RDW 18.9 % (11.6-15.6); WHITE BLOOD COUNT 8.6 K/mm3 (4.0-10.0)
[2023-05-14] MEDS ORDERED: PANTOPRAZOLE 40 MG TABLET PO SCH ×2 (10:00)
[2023-05-14 10:15] LABS: POTASSIUM 3.7 mmol/L (3.5-5.1)
[2023-05-14 10:16] LABS: BLOOD UREA NITROGEN 21.4 mg/dL (7-18); CALCIUM 9.1 mg/dL (8.5-10.1)
[2023-05-14 10:20] LABS: CREATININE 4.5 mg/dL (0.55-1.3)
[2023-05-14] MEDS: AMINO ACIDS/PROTEIN HYDROLYS 30 ML LIQUID.PKT PEG SCH (10:25)
[2023-05-14] MEDS: levETIRAcetam 500 MG/5 ML ORAL SOLUTION (UNIT-DOSE CUPS) GT SCH ×2 (10:25→22:40)
[2023-05-14] MEDS: VITAMIN B COMP W-C 1 EA TABLET (NEPHRO-VITE) GT SCH (10:25)
[2023-05-14] MEDS: SERTRALINE HCL 50 MG TABLET (FP) GT SCH (10:25)
[2023-05-14] MEDS: risperiDONE 0.25 MG TABLET GT SCH (10:26)
[2023-05-14] MEDS: valACYclovir HCL 500 MG TABLET (FP) GT SCH (10:26)
[2023-05-14] MEDS: FAMOTIDINE 10 MG TABLET PEG SCH (12:23)
[2023-05-14] MEDS: ATORVASTATIN CA 40 MG TABLET (FP) PEG SCH (22:39)
[2023-05-15 08:18] LABS: POTASSIUM 3.6 mmol/L (3.5-5.1)
[2023-05-15 08:21] LABS: CALCIUM 9.3 mg/dL (8.5-10.1)
[2023-05-15 08:22] LABS: BLOOD UREA NITROGEN 34.8 mg/dL (7-18)
[2023-05-15 08:25] LABS: CREATININE 5.9 mg/dL (0.55-1.3)
[2023-05-15] MEDS: AMINO ACIDS/PROTEIN HYDROLYS 30 ML LIQUID.PKT PEG SCH (08:29)
[2023-05-15] MEDS: levETIRAcetam 500 MG/5 ML ORAL SOLUTION (UNIT-DOSE CUPS) GT SCH ×2 (09:50→22:20)
[2023-05-15] MEDS: FAMOTIDINE 10 MG TABLET PEG SCH (09:50)
[2023-05-15] MEDS: SERTRALINE HCL 50 MG TABLET (FP) GT SCH (09:51)
[2023-05-15] MEDS: valACYclovir HCL 500 MG TABLET (FP) GT SCH (09:51)
[2023-05-15] MEDS: VITAMIN B COMP W-C 1 EA TABLET (NEPHRO-VITE) GT SCH (09:51)
[2023-05-15] MEDS: risperiDONE 0.25 MG TABLET GT SCH ×2 (09:51→22:20)
[2023-05-15] MEDS ORDERED: SODIUM CHLORIDE 250 ML IV PRN (18:23)
[2023-05-15] MEDS ORDERED: LORazepam 0.5 MG TABLET GT ONE (18:55)
[2023-05-15] MEDS ORDERED: EPOETIN ALFA-EPBX 4,000 UNIT/ML VIAL SQ ONE (19:00)
[2023-05-15] MEDS: ATORVASTATIN CA 40 MG TABLET (FP) PEG SCH (22:20)
[2023-05-16 08:02] LABS: BASO % 0.4 % (0-2.0); EOS % 1.4 % (0-4.5); HEMATOCRIT 26.7 % (32.4-45.2); HEMOGLOBIN 8.8 GM/dL (10.7-15.3); LYMPH % 12.4 % (8-40); MCH 28.9 pg (25.7-33.7); MCHC 33.1 g/dl (32.0-36.0); MEAN CELL VOLUME 87.3 fl (80-96); MEAN PLT VOLUME 7.8 fl (7.5-11.1); MONO % 8.8 % (3.8-10.2); PLATELET COUNT 415 10^3/uL (134-434); RBC 3.06 M/mm3 (3.60-5.2); RDW 18.5 % (11.6-15.6); WHITE BLOOD COUNT 11.2 K/mm3 (4.0-10.0)
[2023-05-16 08:17] LABS: POTASSIUM 3.7 mmol/L (3.5-5.1)
[2023-05-16 08:26] LABS: CALCIUM 9.4 mg/dL (8.5-10.1)
[2023-05-16 08:27] LABS: BLOOD UREA NITROGEN 25.5 mg/dL (7-18)
[2023-05-16 08:30] LABS: CREATININE 4.2 mg/dL (0.55-1.3)
[2023-05-16] MEDS: levETIRAcetam 500 MG/5 ML ORAL SOLUTION (UNIT-DOSE CUPS) GT SCH ×2 (09:10→22:16)
[2023-05-16] MEDS: AMINO ACIDS/PROTEIN HYDROLYS 30 ML LIQUID.PKT PEG SCH (09:10)
[2023-05-16] MEDS: risperiDONE 0.25 MG TABLET GT SCH ×2 (09:11→22:16)
[2023-05-16] MEDS: valACYclovir HCL 500 MG TABLET (FP) GT SCH (09:11)
[2023-05-16] MEDS: VITAMIN B COMP W-C 1 EA TABLET (NEPHRO-VITE) GT SCH (09:12)
[2023-05-16] MEDS: SERTRALINE HCL 50 MG TABLET (FP) GT SCH (09:13)
[2023-05-16] MEDS: FAMOTIDINE 10 MG TABLET PEG SCH (09:14)
[2023-05-16] MEDS: ATORVASTATIN CA 40 MG TABLET (FP) PEG SCH (22:16)
[2023-05-17] MEDS ORDERED: SODIUM CHLORIDE 250 ML IV PRN (07:32)
[2023-05-17] MEDS ORDERED: EPOETIN ALFA-EPBX 4,000 UNIT/ML VIAL SQ ONE (08:30)
[2023-05-17 10:11] LABS: BASO % 0.2 % (0-2.0); EOS % 1.5 % (0-4.5); HEMATOCRIT 24.8 % (32.4-45.2); HEMOGLOBIN 8.2 GM/dL (10.7-15.3); LYMPH % 8.2 % (8-40); MCH 28.9 pg (25.7-33.7); MCHC 32.9 g/dl (32.0-36.0); MEAN CELL VOLUME 87.6 fl (80-96); MEAN PLT VOLUME 8.5 fl (7.5-11.1); MONO % 5.9 % (3.8-10.2); NEUT % 84.2 % (42.8-82.8); PLATELET COUNT 407 10^3/uL (134-434); RBC 2.83 M/mm3 (3.60-5.2); RDW 18.2 % (11.6-15.6); WHITE BLOOD COUNT 12.7 K/mm3 (4.0-10.0)
[2023-05-17 11:15] LABS: BLOOD UREA NITROGEN 36.2 mg/dL (7-18); CALCIUM 9.2 mg/dL (8.5-10.1); POTASSIUM 3.1 mmol/L (3.5-5.1)
[2023-05-17] MEDS: levETIRAcetam 500 MG/5 ML ORAL SOLUTION (UNIT-DOSE CUPS) GT SCH ×2 (12:16→22:33)
[2023-05-17] MEDS: risperiDONE 0.25 MG TABLET GT SCH ×2 (12:17→22:34)
[2023-05-17] MEDS ORDERED: POTASSIUM CHLORIDE ORAL LIQUID 20 MEQ/15 ML PO ONE ×2 (13:30→16:15)
[2023-05-17] MEDS: VITAMIN B COMP W-C 1 EA TABLET (NEPHRO-VITE) GT SCH (16:16)
[2023-05-17] MEDS: valACYclovir HCL 500 MG TABLET (FP) GT SCH (16:16)
[2023-05-17] MEDS: SERTRALINE HCL 50 MG TABLET (FP) GT SCH (16:16)
[2023-05-17] MEDS: FAMOTIDINE 10 MG TABLET PEG SCH (16:17)
[2023-05-17] MEDS: AMINO ACIDS/PROTEIN HYDROLYS 30 ML LIQUID.PKT PEG SCH (16:17)
[2023-05-17] MEDS: CEFTRIAXONE 1 GM in DEXTROSE 5%-WATER - 50 ML IVPB SCH (17:37)
[2023-05-17] MEDS: ATORVASTATIN CA 40 MG TABLET (FP) PEG SCH (22:33)
[2023-05-18] MEDS ORDERED: ALBUTEROL SO4 0.5 % INH SOLN 2.5 MG/0.5 ML VIAL.NEB. NEB PRN (03:31)
[2023-05-18 08:57] LABS: BASO % 0.5 % (0-2.0); EOS % 1.4 % (0-4.5); HEMATOCRIT 25.6 % (32.4-45.2); HEMOGLOBIN 8.2 GM/dL (10.7-15.3); LYMPH % 11.5 % (8-40); MCH 28.1 pg (25.7-33.7); MCHC 31.9 g/dl (32.0-36.0); MEAN PLT VOLUME 8.5 fl (7.5-11.1); MONO % 13.1 % (3.8-10.2); NEUT % 73.5 % (42.8-82.8); PLATELET COUNT 403 10^3/uL (134-434); RBC 2.91 M/mm3 (3.60-5.2); RDW 18.3 % (11.6-15.6); WHITE BLOOD COUNT 11.3 K/mm3 (4.0-10.0)
[2023-05-18 09:06] LABS: POTASSIUM 3.9 mmol/L (3.5-5.1)
[2023-05-18 09:10] LABS: ALBUMIN 2.2 g/dl (3.4-5.0); BLOOD UREA NITROGEN 28.9 mg/dL (7-18); MAGNESIUM 2.3 mg/dL (1.8-2.4)
[2023-05-18 09:13] LABS: CREATININE 4.4 mg/dL (0.55-1.3); PHOSPHOROUS 2.4 mg/dL (2.5-4.9)
[2023-05-18 09:14] LABS: BILIRUBIN,TOTAL 0.2 mg/dL (0.2-1); TOT PROT 7.2 g/dl (6.4-8.2)
[2023-05-18] MEDS: SERTRALINE HCL 50 MG TABLET (FP) GT SCH (11:44)
[2023-05-18] MEDS: AMINO ACIDS/PROTEIN HYDROLYS 30 ML LIQUID.PKT PEG SCH (11:44)
[2023-05-18] MEDS: FAMOTIDINE 10 MG TABLET PEG SCH (11:44)
[2023-05-18] MEDS: levETIRAcetam 500 MG/5 ML ORAL SOLUTION (UNIT-DOSE CUPS) GT SCH ×2 (11:44→23:17)
[2023-05-18] MEDS: valACYclovir HCL 500 MG TABLET (FP) GT SCH (11:45)
[2023-05-18] MEDS: risperiDONE 0.25 MG TABLET GT SCH ×2 (11:45→23:17)
[2023-05-18] MEDS: CEFTRIAXONE 1 GM in DEXTROSE 5%-WATER - 50 ML IVPB SCH (11:45)
[2023-05-18] MEDS: VITAMIN B COMP W-C 1 EA TABLET (NEPHRO-VITE) GT SCH (11:47)
[2023-05-18] MEDS ORDERED: ALPRAZolam 1 MG TABLET GT PRN (15:26)
[2023-05-18] MEDS: AMOX TR/POTASSIUM CLAVULANATE 250 MG/5 ML BOTTLE PO SCH (17:27)
[2023-05-18] MEDS ORDERED: AMOX TR/POT CLAV 875MG/125MG TABLETS (FP) PO SCH (17:30)
[2023-05-18] MEDS: ATORVASTATIN CA 40 MG TABLET (FP) PEG SCH (23:17)
[2023-05-19] MEDS: AMINO ACIDS/PROTEIN HYDROLYS 30 ML LIQUID.PKT PEG SCH (08:48)
[2023-05-19] MEDS: AMOX TR/POTASSIUM CLAVULANATE 250 MG/5 ML BOTTLE PO SCH ×2 (08:49→17:47)
[2023-05-19] MEDS: SERTRALINE HCL 50 MG TABLET (FP) GT SCH (09:04)
[2023-05-19] MEDS: levETIRAcetam 500 MG/5 ML ORAL SOLUTION (UNIT-DOSE CUPS) GT SCH ×2 (09:04→22:18)
[2023-05-19] MEDS: FAMOTIDINE 10 MG TABLET PEG SCH (09:04)
[2023-05-19] MEDS: VITAMIN B COMP W-C 1 EA TABLET (NEPHRO-VITE) GT SCH (09:05)
[2023-05-19] MEDS: valACYclovir HCL 500 MG TABLET (FP) GT SCH (09:05)
[2023-05-19] MEDS: risperiDONE 0.25 MG TABLET GT SCH ×2 (09:05→22:18)
[2023-05-19] MEDS ORDERED: NAPH,MB-DB/K PH,MBDB POWDER PACKET PO ONE (14:23)
[2023-05-19] MEDS: ATORVASTATIN CA 40 MG TABLET (FP) PEG SCH (22:18)
[2023-05-19] MEDS ORDERED: ACETAMINOPHEN 500 MG TABLET (FP) NGT ONE (23:25)
[2023-05-20] MEDS: AMINO ACIDS/PROTEIN HYDROLYS 30 ML LIQUID.PKT PEG SCH (09:10)
[2023-05-20] MEDS ORDERED: SODIUM CHLORIDE 250 ML IV PRN ×2 (09:53→11:51)
[2023-05-20 10:06] LABS: BASO % 0.2 % (0-2.0); EOS % 1.1 % (0-4.5); HEMATOCRIT 25.1 % (32.4-45.2); HEMOGLOBIN 8.1 GM/dL (10.7-15.3); LYMPH % 3.9 % (8-40); MCH 28.1 pg (25.7-33.7); MCHC 32.4 g/dl (32.0-36.0); MEAN CELL VOLUME 86.5 fl (80-96); MEAN PLT VOLUME 8.6 fl (7.5-11.1); MONO % 4.8 % (3.8-10.2); PLATELET COUNT 434 10^3/uL (134-434); RDW 18.1 % (11.6-15.6); WHITE BLOOD COUNT 17.2 K/mm3 (4.0-10.0)
[2023-05-20] MEDS ORDERED: EPOETIN ALFA-EPBX 4,000 UNIT/ML VIAL SQ ONE (10:30)
[2023-05-20 10:52] LABS: POTASSIUM 3.8 mmol/L (3.5-5.1)
[2023-05-20 10:59] LABS: ALBUMIN 2.1 g/dl (3.4-5.0); CALCIUM 9.6 mg/dL (8.5-10.1); MAGNESIUM 2.5 mg/dL (1.8-2.4)
[2023-05-20 11:02] LABS: CREATININE 7.3 mg/dL (0.55-1.3); PHOSPHOROUS 2.6 mg/dL (2.5-4.9)
[2023-05-20 11:03] LABS: BILIRUBIN,TOTAL 0.2 mg/dL (0.2-1); TOT PROT 7.2 g/dl (6.4-8.2)
[2023-05-20 11:13] LABS: BLOOD UREA NITROGEN 63.6 mg/dL (7-18)
[2023-05-20] MEDS ORDERED: MAGNESIUM 2GM/50ML STERILE WATER IVPB IVPB ONE (11:55)
[2023-05-20] MEDS: levETIRAcetam 500 MG/5 ML ORAL SOLUTION (UNIT-DOSE CUPS) GT SCH ×2 (12:56→22:13)
[2023-05-20] MEDS: SERTRALINE HCL 50 MG TABLET (FP) GT SCH (12:57)
[2023-05-20] MEDS: FAMOTIDINE 10 MG TABLET PEG SCH (12:57)
[2023-05-20] MEDS: VITAMIN B COMP W-C 1 EA TABLET (NEPHRO-VITE) GT SCH (12:58)
[2023-05-20] MEDS: valACYclovir HCL 500 MG TABLET (FP) GT SCH (12:58)
[2023-05-20] MEDS: risperiDONE 0.25 MG TABLET GT SCH ×2 (12:59→22:13)
[2023-05-20] MEDS: AMOX TR/POTASSIUM CLAVULANATE 250 MG/5 ML BOTTLE PO SCH ×2 (13:01→17:31)
[2023-05-20] MEDS: ATORVASTATIN CA 40 MG TABLET (FP) PEG SCH (22:13)
[2023-05-21 11:09] LABS: BASO % 0.5 % (0-2.0); EOS % 0.9 % (0-4.5); HEMATOCRIT 24.2 % (32.4-45.2); HEMOGLOBIN 7.7 GM/dL (10.7-15.3); LYMPH % 8.6 % (8-40); MCH 27.4 pg (25.7-33.7); MEAN CELL VOLUME 85.7 fl (80-96); MEAN PLT VOLUME 8.9 fl (7.5-11.1); MONO % 11.3 % (3.8-10.2); NEUT % 78.7 % (42.8-82.8); PLATELET COUNT 432 10^3/uL (134-434); RBC 2.83 M/mm3 (3.60-5.2); RDW 17.8 % (11.6-15.6); WHITE BLOOD COUNT 11.9 K/mm3 (4.0-10.0)
[2023-05-21] MEDS: levETIRAcetam 500 MG/5 ML ORAL SOLUTION (UNIT-DOSE CUPS) GT SCH ×2 (12:20→22:33)
[2023-05-21] MEDS: valACYclovir HCL 500 MG TABLET (FP) GT SCH (12:21)
[2023-05-21] MEDS: VITAMIN B COMP W-C 1 EA TABLET (NEPHRO-VITE) GT SCH (12:21)
[2023-05-21] MEDS: FAMOTIDINE 10 MG TABLET PEG SCH (12:21)
[2023-05-21] MEDS: SERTRALINE HCL 50 MG TABLET (FP) GT SCH (12:21)
[2023-05-21] MEDS: AMOX TR/POTASSIUM CLAVULANATE 250 MG/5 ML BOTTLE PO SCH ×2 (12:22→19:04)
[2023-05-21] MEDS: AMINO ACIDS/PROTEIN HYDROLYS 30 ML LIQUID.PKT PEG SCH (12:22)
[2023-05-21 13:25] LABS: BILIRUBIN,TOTAL 0.2 mg/dL (0.2-1); BLOOD UREA NITROGEN 38.6 mg/dL (7-18); CALCIUM 9.4 mg/dL (8.5-10.1); MAGNESIUM 2.7 mg/dL (1.8-2.4); PHOSPHOROUS 1.8 mg/dL (2.5-4.9); TOT PROT 7.2 g/dl (6.4-8.2)
[2023-05-21] MEDS ORDERED: MAGNESIUM SULF 50% (8.12 MEQ/2 ML-1 GM VIAL) IVPB ONE (13:29)
[2023-05-21] MEDS ORDERED: NAPH,MB-DB/K PH,MBDB POWDER PACKET PO ONE (13:30)
[2023-05-21] MEDS: risperiDONE 0.25 MG TABLET GT SCH ×2 (14:31→22:33)
[2023-05-21] MEDS: ATORVASTATIN CA 40 MG TABLET (FP) PEG SCH (22:33)
[2023-05-22] MEDS ORDERED: SODIUM CHLORIDE 250 ML IV PRN (07:51)
[2023-05-22] MEDS ORDERED: EPOETIN ALFA-EPBX 3,000 UNIT/ML VIAL SQ ONE (09:00)
[2023-05-22 09:37] LABS: BASO % 0.5 % (0-2.0); EOS % 2.2 % (0-4.5); HEMOGLOBIN 7.9 GM/dL (10.7-15.3); LYMPH % 11.6 % (8-40); MCHC 31.7 g/dl (32.0-36.0); MEAN CELL VOLUME 88.3 fl (80-96); MEAN PLT VOLUME 9.2 fl (7.5-11.1); MONO % 11.5 % (3.8-10.2); NEUT % 74.2 % (42.8-82.8); PLATELET COUNT 492 10^3/uL (134-434); RBC 2.83 M/mm3 (3.60-5.2); RDW 17.8 % (11.6-15.6); WHITE BLOOD COUNT 9.2 K/mm3 (4.0-10.0)
[2023-05-22 10:00] LABS: POTASSIUM 3.8 mmol/L (3.5-5.1)
[2023-05-22 10:02] LABS: CALCIUM 9.6 mg/dL (8.5-10.1); MAGNESIUM 2.5 mg/dL (1.8-2.4)
[2023-05-22 10:05] LABS: CREATININE 5.1 mg/dL (0.55-1.3); PHOSPHOROUS 3.2 mg/dL (2.5-4.9)
[2023-05-22 10:07] LABS: BILIRUBIN,TOTAL 0.2 mg/dL (0.2-1); TOT PROT 7.5 g/dl (6.4-8.2)
[2023-05-22] MEDS ORDERED: MAGNESIUM SULF 50% (8.12 MEQ/2 ML-1 GM VIAL) IVPB ONE ×2 (13:04→15:15)
[2023-05-22] MEDS: VITAMIN B COMP W-C 1 EA TABLET (NEPHRO-VITE) GT SCH (14:59)
[2023-05-22] MEDS: FAMOTIDINE 10 MG TABLET PEG SCH (14:59)
[2023-05-22] MEDS: AMOX TR/POTASSIUM CLAVULANATE 250 MG/5 ML BOTTLE PO SCH ×2 (14:59→19:36)
[2023-05-22] MEDS: SERTRALINE HCL 50 MG TABLET (FP) GT SCH (14:59)
[2023-05-22] MEDS: AMINO ACIDS/PROTEIN HYDROLYS 30 ML LIQUID.PKT PEG SCH (15:00)
[2023-05-22] MEDS: levETIRAcetam 500 MG/5 ML ORAL SOLUTION (UNIT-DOSE CUPS) GT SCH ×2 (15:02→22:09)
[2023-05-22] MEDS: valACYclovir HCL 500 MG TABLET (FP) GT SCH (15:02)
[2023-05-22] MEDS: risperiDONE 0.25 MG TABLET GT SCH ×2 (15:09→22:09)
[2023-05-22] MEDS: DOXYCYCLINE INJECTION 100 MG in DEXTROSE 5%-WATER 100 ML IVPB SCH (22:09)
[2023-05-22] MEDS: ATORVASTATIN CA 40 MG TABLET (FP) PEG SCH (22:09)
[2023-05-23 10:47] LABS: HEMATOCRIT 25.2 % (32.4-45.2); HEMOGLOBIN 8.2 GM/dL (10.7-15.3); MCH 28.1 pg (25.7-33.7); MCHC 32.5 g/dl (32.0-36.0); MEAN CELL VOLUME 86.6 fl (80-96); MEAN PLT VOLUME 8.8 fl (7.5-11.1); PLATELET COUNT 477 10^3/uL (134-434); RBC 2.91 M/mm3 (3.60-5.2); WHITE BLOOD COUNT 8.4 K/mm3 (4.0-10.0)
[2023-05-23 11:24] LABS: POTASSIUM 4.2 mmol/L (3.5-5.1)
[2023-05-23 11:31] LABS: ALBUMIN 2.3 g/dl (3.4-5.0)
[2023-05-23 11:32] LABS: BLOOD UREA NITROGEN 28.6 mg/dL (7-18); CALCIUM 9.5 mg/dL (8.5-10.1); CREATININE 3.6 mg/dL (0.55-1.3)
[2023-05-23 11:34] LABS: BILIRUBIN,TOTAL 0.3 mg/dL (0.2-1); PHOSPHOROUS 2.3 mg/dL (2.5-4.9); TOT PROT 7.8 g/dl (6.4-8.2)
[2023-05-23] MEDS: levETIRAcetam 500 MG/5 ML ORAL SOLUTION (UNIT-DOSE CUPS) GT SCH ×2 (12:17→22:27)
[2023-05-23] MEDS: AMINO ACIDS/PROTEIN HYDROLYS 30 ML LIQUID.PKT PEG SCH (12:17)
[2023-05-23] MEDS: DOXYCYCLINE INJECTION 100 MG in DEXTROSE 5%-WATER 100 ML IVPB SCH ×2 (12:17→22:57)
[2023-05-23] MEDS: SERTRALINE HCL 50 MG TABLET (FP) GT SCH (12:18)
[2023-05-23] MEDS: valACYclovir HCL 500 MG TABLET (FP) GT SCH (12:18)
[2023-05-23] MEDS: VITAMIN B COMP W-C 1 EA TABLET (NEPHRO-VITE) GT SCH (12:18)
[2023-05-23] MEDS: FAMOTIDINE 10 MG TABLET PEG SCH (12:18)
[2023-05-23] MEDS: risperiDONE 0.25 MG TABLET GT SCH ×2 (12:22→22:27)
[2023-05-23 13:17] LABS: ANISOCYTOSIS 2+; MACROCYTOSIS 0; OVALOCYTE 2+; TEAR DROP CELLS 2+
[2023-05-23] MEDS ORDERED: NAPH,MB-DB/K PH,MBDB POWDER PACKET PO ONE ×2 (13:45→17:45)
[2023-05-23] MEDS ORDERED: AMOX TR/POTASSIUM CLAVULANATE 250 MG/5 ML BOTTLE PO SCH (17:30)
[2023-05-23] MEDS: ATORVASTATIN CA 40 MG TABLET (FP) PEG SCH (22:27)
[2023-05-24] MEDS: AMINO ACIDS/PROTEIN HYDROLYS 30 ML LIQUID.PKT PEG SCH (09:10)
[2023-05-24] MEDS ORDERED: SODIUM CHLORIDE 250 ML IV PRN (10:38)
[2023-05-24] MEDS ORDERED: EPOETIN ALFA-EPBX 3,000 UNIT/ML VIAL IVPUSH ONE (11:00)
[2023-05-24 11:02] LABS: HEMATOCRIT 23.4 % (32.4-45.2); HEMOGLOBIN 7.9 GM/dL (10.7-15.3); MCH 28.6 pg (25.7-33.7); MCHC 33.5 g/dl (32.0-36.0); MEAN CELL VOLUME 85.2 fl (80-96); MEAN PLT VOLUME 8.3 fl (7.5-11.1); PLATELET COUNT 450 10^3/uL (134-434); RBC 2.75 M/mm3 (3.60-5.2); RDW 17.4 % (11.6-15.6); WHITE BLOOD COUNT 7.1 K/mm3 (4.0-10.0)
[2023-05-24 11:20] LABS: POTASSIUM 3.5 mmol/L (3.5-5.1)
[2023-05-24 11:26] LABS: BLOOD UREA NITROGEN 43.1 mg/dL (7-18); CALCIUM 9.4 mg/dL (8.5-10.1)
[2023-05-24 11:27] LABS: ALBUMIN 2.2 g/dl (3.4-5.0); MAGNESIUM 2.7 mg/dL (1.8-2.4)
[2023-05-24 11:30] LABS: CREATININE 4.3 mg/dL (0.55-1.3); PHOSPHOROUS 2.9 mg/dL (2.5-4.9)
[2023-05-24 11:31] LABS: BILIRUBIN,TOTAL 0.2 mg/dL (0.2-1); TOT PROT 7.7 g/dl (6.4-8.2)
[2023-05-24] MEDS ORDERED: DOXYCYCLINE HYCLATE 100 MG VIAL ONE (14:42)
[2023-05-24] MEDS: levETIRAcetam 500 MG/5 ML ORAL SOLUTION (UNIT-DOSE CUPS) GT SCH ×2 (14:44→22:21)
[2023-05-24] MEDS: valACYclovir HCL 500 MG TABLET (FP) GT SCH (14:44)
[2023-05-24] MEDS: VITAMIN B COMP W-C 1 EA TABLET (NEPHRO-VITE) GT SCH (14:44)
[2023-05-24] MEDS: FAMOTIDINE 10 MG TABLET PEG SCH (14:44)
[2023-05-24] MEDS: DOXYCYCLINE INJECTION 100 MG in DEXTROSE 5%-WATER 100 ML IVPB SCH ×2 (14:44→22:22)
[2023-05-24] MEDS: SERTRALINE HCL 50 MG TABLET (FP) GT SCH (14:45)
[2023-05-24] MEDS: risperiDONE 0.25 MG TABLET GT SCH ×2 (14:47→22:22)
[2023-05-24] MEDS: ATORVASTATIN CA 40 MG TABLET (FP) PEG SCH (22:22)
[2023-05-25 09:15] LABS: HEMATOCRIT 24.1 % (32.4-45.2); MCH 28.8 pg (25.7-33.7); MCHC 33.1 g/dl (32.0-36.0); MEAN PLT VOLUME 8.7 fl (7.5-11.1); PLATELET COUNT 464 10^3/uL (134-434); RBC 2.77 M/mm3 (3.60-5.2); RDW 17.6 % (11.6-15.6); WHITE BLOOD COUNT 8.1 K/mm3 (4.0-10.0)
[2023-05-25] MEDS: levETIRAcetam 500 MG/5 ML ORAL SOLUTION (UNIT-DOSE CUPS) GT SCH ×2 (09:19→22:10)
[2023-05-25] MEDS: VITAMIN B COMP W-C 1 EA TABLET (NEPHRO-VITE) GT SCH (09:19)
[2023-05-25] MEDS: FAMOTIDINE 10 MG TABLET PEG SCH (09:19)
[2023-05-25] MEDS: risperiDONE 0.25 MG TABLET GT SCH ×2 (09:19→22:11)
[2023-05-25] MEDS: SERTRALINE HCL 50 MG TABLET (FP) GT SCH (09:20)
[2023-05-25] MEDS: AMINO ACIDS/PROTEIN HYDROLYS 30 ML LIQUID.PKT PEG SCH (09:20)
[2023-05-25 09:44] LABS: POTASSIUM 3.7 mmol/L (3.5-5.1)
[2023-05-25 09:59] LABS: CALCIUM 9.9 mg/dL (8.5-10.1)
[2023-05-25 10:03] LABS: CREATININE 3.3 mg/dL (0.55-1.3)
[2023-05-25 10:06] LABS: ANISOCYTOSIS 2+; MACROCYTOSIS 0
[2023-05-25] MEDS: DOXYCYCLINE INJECTION 100 MG in DEXTROSE 5%-WATER 100 ML IVPB SCH ×2 (10:33→22:10)
[2023-05-25] MEDS: valACYclovir HCL 500 MG TABLET (FP) GT SCH (12:08)
[2023-05-25] MEDS: ATORVASTATIN CA 40 MG TABLET (FP) PEG SCH (22:10)
[2023-05-26] MEDS ORDERED: EPOETIN ALFA-EPBX 4,000 UNIT/ML VIAL IVPUSH ONE (06:00)
[2023-05-26] MEDS: AMINO ACIDS/PROTEIN HYDROLYS 30 ML LIQUID.PKT PEG SCH (10:33)
[2023-05-26] MEDS: levETIRAcetam 500 MG/5 ML ORAL SOLUTION (UNIT-DOSE CUPS) GT SCH ×2 (10:33→21:35)
[2023-05-26] MEDS: FAMOTIDINE 10 MG TABLET PEG SCH (10:33)
[2023-05-26] MEDS: valACYclovir HCL 500 MG TABLET (FP) GT SCH (10:33)
[2023-05-26] MEDS: SERTRALINE HCL 50 MG TABLET (FP) GT SCH (10:34)
[2023-05-26] MEDS: VITAMIN B COMP W-C 1 EA TABLET (NEPHRO-VITE) GT SCH (10:34)
[2023-05-26 11:02] LABS: HEMATOCRIT 25.3 % (32.4-45.2); HEMOGLOBIN 8.4 GM/dL (10.7-15.3); MCH 28.4 pg (25.7-33.7); MCHC 33.4 g/dl (32.0-36.0); MEAN PLT VOLUME 8.4 fl (7.5-11.1); PLATELET COUNT 493 10^3/uL (134-434); RBC 2.97 M/mm3 (3.60-5.2); RDW 17.6 % (11.6-15.6); WHITE BLOOD COUNT 7.3 K/mm3 (4.0-10.0)
[2023-05-26 11:23] LABS: POTASSIUM 3.8 mmol/L (3.5-5.1)
[2023-05-26 11:28] LABS: ANISOCYTOSIS 0; BLOOD UREA NITROGEN 53.1 mg/dL (7-18); CALCIUM 9.7 mg/dL (8.5-10.1); MACROCYTOSIS 0
[2023-05-26 11:29] LABS: ALBUMIN 2.4 g/dl (3.4-5.0); MAGNESIUM 2.3 mg/dL (1.8-2.4)
[2023-05-26 11:32] LABS: CREATININE 4.9 mg/dL (0.55-1.3); PHOSPHOROUS 3.9 mg/dL (2.5-4.9)
[2023-05-26 11:33] LABS: BILIRUBIN,TOTAL 0.3 mg/dL (0.2-1); TOT PROT 7.5 g/dl (6.4-8.2)
[2023-05-26] MEDS: risperiDONE 0.25 MG TABLET GT SCH ×2 (11:45→21:34)
[2023-05-26] MEDS: DOXYCYCLINE INJECTION 100 MG in DEXTROSE 5%-WATER 100 ML IVPB SCH ×2 (19:40→21:32)
[2023-05-26] MEDS: ATORVASTATIN CA 40 MG TABLET (FP) PEG SCH (21:35)
[2023-05-27 04:43] VITALS: RESP 20
[2023-05-27] MEDS: AMINO ACIDS/PROTEIN HYDROLYS 30 ML LIQUID.PKT PEG SCH (08:44)
[2023-05-27] MEDS: valACYclovir HCL 500 MG TABLET (FP) GT SCH (10:27)
[2023-05-27] MEDS: SERTRALINE HCL 50 MG TABLET (FP) GT SCH (10:27)
[2023-05-27] MEDS: FAMOTIDINE 10 MG TABLET PEG SCH (10:27)
[2023-05-27] MEDS: VITAMIN B COMP W-C 1 EA TABLET (NEPHRO-VITE) GT SCH (10:27)
[2023-05-27] MEDS: levETIRAcetam 500 MG/5 ML ORAL SOLUTION (UNIT-DOSE CUPS) GT SCH ×2 (10:27→21:39)
[2023-05-27] MEDS: risperiDONE 0.25 MG TABLET GT SCH ×2 (10:27→21:39)
[2023-05-27] MEDS ORDERED: SODIUM CHLORIDE 250 ML IV PRN (13:46)
[2023-05-27] MEDS: ATORVASTATIN CA 40 MG TABLET (FP) PEG SCH (21:39)
[2023-05-27 23:07] VITALS: BP 110/75; PULSE 103; TEMP 98.1
[2023-05-28] MEDS ORDERED: EPOETIN ALFA-EPBX 3,000 UNIT/ML VIAL SQ ONE (13:46)
== END 2023-05-28 01:45 | DRG 377 ==
LOC: JER 09:05 → JERBED 15:23 → J4W 18:32 → J6S 05-12 23:05
PROVIDERS: ADMIT Internal Medicine; ATTEND Internal Medicine
PROC: 5A1D70Z Performance of Urinary Filtration, Intermittent, Less than 6 Hours Per Day (ICD-10-PCS; 2023-05-08)
PROC: 30233N1 Transfusion of Nonautologous Red Blood Cells into Peripheral Vein, Percutaneous Approach (ICD-10-PCS; principal; 2023-05-09)
PROC: 5A1D70Z Performance of Urinary Filtration, Intermittent, Less than 6 Hours Per Day (ICD-10-PCS; 2023-05-15)
PROC: 5A1D70Z Performance of Urinary Filtration, Intermittent, Less than 6 Hours Per Day (ICD-10-PCS; 2023-05-20)
PROC: 5A1D70Z Performance of Urinary Filtration, Intermittent, Less than 6 Hours Per Day (ICD-10-PCS; 2023-05-22)
PROC: 5A1D70Z Performance of Urinary Filtration, Intermittent, Less than 6 Hours Per Day (ICD-10-PCS; 2023-05-24)
PROC: 5A1D70Z Performance of Urinary Filtration, Intermittent, Less than 6 Hours Per Day (ICD-10-PCS; 2023-05-26)
DX: K92.2 Gastrointestinal hemorrhage, unspecified (principal); J69.0 Pneumonitis due to inhalation of food and vomit; J96.01 Acute respiratory failure with hypoxia; N18.6 End stage renal disease; D62 Acute posthemorrhagic anemia; J91.8 Pleural effusion in other conditions classified elsewhere; J90 Pleural effusion, not elsewhere classified; I31.39 Other pericardial effusion (noninflammatory); I12.0 Hypertensive chronic kidney disease with stage 5 chronic kidney disease or end stage renal disease; E78.5 Hyperlipidemia, unspecified; E03.9 Hypothyroidism, unspecified; D75.839 Thrombocytosis, unspecified; R45.1 Restlessness and agitation; E87.6 Hypokalemia; I69.320 Aphasia following cerebral infarction; Z93.0 Tracheostomy status; Z93.1 Gastrostomy status; Z99.2 Dependence on renal dialysis
CPT/HCPCS: 36415; 36430; 36511; 36600; 71045-TC-FY; 71250-TC; 74230-TC-FY; 80048; 80053; 80061; 82272; 82607; 82728; 82746; 82803; 83036; 83540; 83550; 83605; 83615; 83735; 84100; 84155; 84165; 84443; 84466; 85025; 85027; 85610; 86038; 86803; 86850; 86870; 86900; 86901; 86902; 86922; 87040; 87070; 87186; 87205; 87340; 87635; 92611-GN; 93005; 93010; 93306-TC; 94640; 99285-25; J7168; P9016; P9038; P9058; Q5106

== ENCOUNTER 2023-06-09 12:20 | Inpatient (IN) | payer OTHER ==
[2023-06-09] MEDS ORDERED: PANTOPRAZOLE SODIUM 40 MG VIAL IVPUSH ONE (12:28)
[2023-06-09] MEDS ORDERED: PANTOPRAZOLE SODIUM 80 MG in SODIUM CHLORIDE 100 ML IVPB SCH (12:30)
[2023-06-09 12:36] VITALS: BMI 22.4
[2023-06-09 13:05] LABS: BASO % 0.4 % (0-2.0); EOS % 0.5 % (0-4.5); HEMATOCRIT 18.6 % (32.4-45.2); LYMPH % 6.4 % (8-40); MCH 27.9 pg (25.7-33.7); MCHC 32.2 g/dl (32.0-36.0); MEAN CELL VOLUME 86.6 fl (80-96); MEAN PLT VOLUME 8.2 fl (7.5-11.1); MONO % 7.5 % (3.8-10.2); NEUT % 85.2 % (42.8-82.8); PLATELET COUNT 407 10^3/uL (134-434); RBC 2.14 M/mm3 (3.60-5.2); RDW 19.4 % (11.6-15.6); WHITE BLOOD COUNT 13.2 K/mm3 (4.0-10.0)
[2023-06-09] MEDS ORDERED: PANTOPRAZOLE SODIUM 40 MG VIAL ONE (13:07)
[2023-06-09] MEDS: PANTOPRAZOLE SODIUM 160 MG in SODIUM CHLORIDE 290 ML IVPB SCH (13:41)
[2023-06-09 13:46] LABS: ACTIVATED PTT 34.7 SECONDS (25.2-36.5); CHLORIDE 92 mmol/L (98-107); INR 1.19 (0.83-1.09); POTASSIUM 3.2 mmol/L (3.5-5.1); PROTHROMBIN TIME (PATIENT) 13.8 SEC (9.7-13.0)
[2023-06-09 13:48] LABS: CO2 28 mmol/L (21-32); GLUCOSE,RANDOM 125 mg/dL (74-106)
[2023-06-09 13:49] LABS: ALBUMIN 2.7 g/dl (3.4-5.0)
[2023-06-09 13:51] LABS: SGPT/ALT 15 U/L (13-61)
[2023-06-09 13:52] LABS: SGOT/AST 18 U/L (15-37)
[2023-06-09 13:53] LABS: BILIRUBIN,TOTAL 0.1 mg/dL (0.2-1); TOT PROT 7.6 g/dl (6.4-8.2)
[2023-06-09 13:55] LABS: ALK PHOS 107 U/L (45-117)
[2023-06-09 14:01] LABS: ANION GAP 14 MMOL/L (8-16); BLOOD UREA NITROGEN 114.6 mg/dL (7-18); CREATININE 8.1 mg/dL (0.55-1.3); SODIUM 133 mmol/L (136-145)
[2023-06-09] MEDS ORDERED: SODIUM CHLORIDE 250 ML IV PRN (17:13)
[2023-06-09] MEDS ORDERED: LACTATED RINGERS SOLUTION 1,000 ML/1,000 ML INFUS.BAG IV SCH (18:00)
[2023-06-09 21:23] LABS: MCH 28.1 pg (25.7-33.7); MCHC 33.4 g/dl (32.0-36.0); MEAN CELL VOLUME 84.2 fl (80-96); MEAN PLT VOLUME 7.8 fl (7.5-11.1); PLATELET COUNT 349 10^3/uL (134-434); RBC 2.49 M/mm3 (3.60-5.2); WHITE BLOOD COUNT 11.7 K/mm3 (4.0-10.0)
[2023-06-09 21:24] LABS: BASO % 0.6 % (0-2.0); EOS % 0.9 % (0-4.5); LYMPH % 11.9 % (8-40); NEUT % 79.6 % (42.8-82.8)
[2023-06-10 07:19] LABS: BASO % 0.5 % (0-2.0); EOS % 1.3 % (0-4.5); HEMATOCRIT 21.7 % (32.4-45.2); HEMOGLOBIN 7.3 GM/dL (10.7-15.3); MCH 28.7 pg (25.7-33.7); MCHC 33.8 g/dl (32.0-36.0); MEAN PLT VOLUME 8.7 fl (7.5-11.1); MONO % 8.2 % (3.8-10.2); PLATELET COUNT 382 10^3/uL (134-434); RBC 2.55 M/mm3 (3.60-5.2); RDW 18.3 % (11.6-15.6)
[2023-06-10 07:37] LABS: CHLORIDE 94 mmol/L (98-107); POTASSIUM 3.5 mmol/L (3.5-5.1); SODIUM 133 mmol/L (136-145)
[2023-06-10 07:44] LABS: CALCIUM 9.8 mg/dL (8.5-10.1); GLUCOSE,RANDOM 93 mg/dL (74-106)
[2023-06-10 07:45] LABS: ANION GAP 10 MMOL/L (8-16); CO2 29 mmol/L (21-32)
[2023-06-10 07:50] LABS: BLOOD UREA NITROGEN 124.3 mg/dL (7-18); CREATININE 8.6 mg/dL (0.55-1.3)
[2023-06-10] MEDS ORDERED: PNEUMOC 20-VAL CONJ-DIP CRM/PF 0.5 ML SYRINGE IM ONE (17:00)
[2023-06-10 19:43] LABS: MAGNESIUM 2.8 mg/dL (1.8-2.4)
[2023-06-10 19:44] LABS: PHOSPHOROUS 3.7 mg/dL (2.5-4.9)
[2023-06-10 19:48] LABS: N-TERMINAL BNP 1220.8 pg/ml (5-125)
[2023-06-10] MEDS: PANTOPRAZOLE SODIUM 40 MG VIAL IVPUSH SCH (23:24)
[2023-06-11] MEDS: PANTOPRAZOLE SODIUM 160 MG in SODIUM CHLORIDE 290 ML IVPB SCH (00:29)
[2023-06-11 07:52] LABS: BASO % 0.5 % (0-2.0); EOS % 1.7 % (0-4.5); HEMATOCRIT 23.8 % (32.4-45.2); LYMPH % 16.4 % (8-40); MCH 29.3 pg (25.7-33.7); MCHC 33.7 g/dl (32.0-36.0); MEAN CELL VOLUME 86.9 fl (80-96); MEAN PLT VOLUME 8.5 fl (7.5-11.1); MONO % 14.6 % (3.8-10.2); NEUT % 66.8 % (42.8-82.8); PLATELET COUNT 374 10^3/uL (134-434); RBC 2.74 M/mm3 (3.60-5.2); RDW 17.2 % (11.6-15.6); WHITE BLOOD COUNT 8.4 K/mm3 (4.0-10.0)
[2023-06-11 08:09] LABS: INR 1.03 (0.83-1.09); POTASSIUM 3.4 mmol/L (3.5-5.1); PROTHROMBIN TIME (PATIENT) 11.9 SEC (9.7-13.0)
[2023-06-11] MEDS ORDERED: METOPROLOL TARTRATE 5 MG/5 ML VIAL IVPUSH PRN (08:13)
[2023-06-11 08:18] LABS: CALCIUM 9.1 mg/dL (8.5-10.1)
[2023-06-11 08:19] LABS: ALBUMIN 2.4 g/dl (3.4-5.0)
[2023-06-11 08:21] LABS: BILIRUBIN,TOTAL 0.3 mg/dL (0.2-1)
[2023-06-11 08:26] LABS: BLOOD UREA NITROGEN 45.1 mg/dL (7-18)
[2023-06-11] MEDS: PANTOPRAZOLE SODIUM 40 MG VIAL IVPUSH SCH ×2 (10:26→22:40)
[2023-06-11 21:27] LABS: HEMATOCRIT 23.5 % (32.4-45.2); MCH 29.2 pg (25.7-33.7); MCHC 33.9 g/dl (32.0-36.0); MEAN CELL VOLUME 86.1 fl (80-96); MEAN PLT VOLUME 8.4 fl (7.5-11.1); PLATELET COUNT 397 10^3/uL (134-434); RBC 2.73 M/mm3 (3.60-5.2); RDW 18.2 % (11.6-15.6); WHITE BLOOD COUNT 11.7 K/mm3 (4.0-10.0)
[2023-06-12 08:01] LABS: BASO % 0.6 % (0-2.0); EOS % 1.9 % (0-4.5); HEMATOCRIT 23.9 % (32.4-45.2); LYMPH % 18.1 % (8-40); MCH 29.3 pg (25.7-33.7); MCHC 33.5 g/dl (32.0-36.0); MEAN CELL VOLUME 87.7 fl (80-96); MEAN PLT VOLUME 8.5 fl (7.5-11.1); MONO % 14.4 % (3.8-10.2); PLATELET COUNT 363 10^3/uL (134-434); RBC 2.72 M/mm3 (3.60-5.2); RDW 17.8 % (11.6-15.6); WHITE BLOOD COUNT 7.6 K/mm3 (4.0-10.0)
[2023-06-12 08:07] LABS: POTASSIUM 3.6 mmol/L (3.5-5.1)
[2023-06-12 08:16] LABS: ALBUMIN 2.5 g/dl (3.4-5.0); CALCIUM 9.1 mg/dL (8.5-10.1); MAGNESIUM 2.3 mg/dL (1.8-2.4)
[2023-06-12 08:18] LABS: PHOSPHOROUS 3.4 mg/dL (2.5-4.9)
[2023-06-12 08:19] LABS: CREATININE 6.9 mg/dL (0.55-1.3)
[2023-06-12 08:20] LABS: BILIRUBIN,TOTAL 0.5 mg/dL (0.2-1)
[2023-06-12] MEDS ORDERED: SODIUM CHLORIDE 250 ML IV PRN (09:57)
[2023-06-12] MEDS ORDERED: EPOETIN ALFA-EPBX 4,000 UNIT/ML VIAL IVPUSH ONE (11:00)
[2023-06-12] MEDS: PANTOPRAZOLE SODIUM 40 MG VIAL IVPUSH SCH ×2 (13:02→21:43)
[2023-06-13 08:53] LABS: BASO % 0.5 % (0-2.0); EOS % 1.7 % (0-4.5); HEMATOCRIT 27.8 % (32.4-45.2); HEMOGLOBIN 9.4 GM/dL (10.7-15.3); LYMPH % 19.5 % (8-40); MCH 29.5 pg (25.7-33.7); MCHC 33.8 g/dl (32.0-36.0); MEAN CELL VOLUME 87.5 fl (80-96); MEAN PLT VOLUME 7.9 fl (7.5-11.1); MONO % 14.4 % (3.8-10.2); NEUT % 63.9 % (42.8-82.8); PLATELET COUNT 389 10^3/uL (134-434); RBC 3.18 M/mm3 (3.60-5.2); RDW 17.6 % (11.6-15.6); WHITE BLOOD COUNT 6.8 K/mm3 (4.0-10.0)
[2023-06-13 08:57] LABS: POTASSIUM 4.1 mmol/L (3.5-5.1)
[2023-06-13 09:19] LABS: ALBUMIN 2.8 g/dl (3.4-5.0); CALCIUM 9.4 mg/dL (8.5-10.1); MAGNESIUM 2.1 mg/dL (1.8-2.4)
[2023-06-13 09:22] LABS: CREATININE 4.7 mg/dL (0.55-1.3); PHOSPHOROUS 3.3 mg/dL (2.5-4.9)
[2023-06-13 09:23] LABS: BILIRUBIN,TOTAL 0.4 mg/dL (0.2-1); TOT PROT 7.8 g/dl (6.4-8.2)
[2023-06-13 09:27] LABS: BLOOD UREA NITROGEN 26.1 mg/dL (7-18)
[2023-06-13] MEDS: PANTOPRAZOLE SODIUM 40 MG VIAL IVPUSH SCH ×2 (09:56→23:51)
[2023-06-13] MEDS ORDERED: METOPROLOL TARTRATE 5 MG/5 ML VIAL IVPUSH PRN (19:26)
[2023-06-14 09:13] LABS: BASO % 0.7 % (0-2.0); EOS % 3.1 % (0-4.5); HEMOGLOBIN 9.3 GM/dL (10.7-15.3); LYMPH % 15.2 % (8-40); MCH 29.5 pg (25.7-33.7); MCHC 33.1 g/dl (32.0-36.0); MEAN PLT VOLUME 8.3 fl (7.5-11.1); MONO % 13.3 % (3.8-10.2); NEUT % 67.7 % (42.8-82.8); PLATELET COUNT 434 10^3/uL (134-434); RBC 3.15 M/mm3 (3.60-5.2); RDW 17.6 % (11.6-15.6); WHITE BLOOD COUNT 7.4 K/mm3 (4.0-10.0)
[2023-06-14 09:30] LABS: POTASSIUM 3.9 mmol/L (3.5-5.1)
[2023-06-14 09:36] LABS: CALCIUM 9.6 mg/dL (8.5-10.1)
[2023-06-14 09:37] LABS: ALBUMIN 2.9 g/dl (3.4-5.0); BLOOD UREA NITROGEN 40.6 mg/dL (7-18); MAGNESIUM 2.4 mg/dL (1.8-2.4)
[2023-06-14] MEDS ORDERED: SODIUM CHLORIDE 250 ML IV PRN (09:39)
[2023-06-14 09:40] LABS: PHOSPHOROUS 4.3 mg/dL (2.5-4.9)
[2023-06-14 09:41] LABS: TOT PROT 7.8 g/dl (6.4-8.2)
[2023-06-14 09:42] LABS: BILIRUBIN,TOTAL 0.3 mg/dL (0.2-1)
[2023-06-14] MEDS ORDERED: DOCUSATE NA 100 MG/10 ML UNIT-DOSE CUPS PO PRN (09:45)
[2023-06-14] MEDS ORDERED: POLYETHYLENE GLYCOL (HEALTHYLAX) 3350 17 GM PACKET PO SCH (10:00)
[2023-06-14] MEDS ORDERED: EPOETIN ALFA-EPBX 4,000 UNIT/ML VIAL SQ ONE (10:30)
[2023-06-14] MEDS: PANTOPRAZOLE SODIUM 40 MG VIAL IVPUSH SCH ×2 (11:59→22:56)
[2023-06-14] MEDS ORDERED: DOCUSATE NA 100 MG/10 ML UNIT-DOSE CUPS GT PRN (15:46)
[2023-06-14] MEDS: ATORVASTATIN CA 40 MG TABLET (FP) PEG SCH (22:53)
[2023-06-14] MEDS: POLYETHYLENE GLYCOL (HEALTHYLAX) 3350 17 GM PACKET GT SCH (22:55)
[2023-06-14] MEDS: levETIRAcetam 500 MG/5 ML ORAL SOLUTION (UNIT-DOSE CUPS) PEG SCH (22:55)
[2023-06-15 09:46] LABS: BASO % 0.6 % (0-2.0); EOS % 3.6 % (0-4.5); HEMATOCRIT 26.6 % (32.4-45.2); HEMOGLOBIN 8.6 GM/dL (10.7-15.3); LYMPH % 15.6 % (8-40); MCH 29.2 pg (25.7-33.7); MCHC 32.3 g/dl (32.0-36.0); MEAN CELL VOLUME 90.5 fl (80-96); MEAN PLT VOLUME 8.3 fl (7.5-11.1); MONO % 13.8 % (3.8-10.2); NEUT % 66.4 % (42.8-82.8); PLATELET COUNT 400 10^3/uL (134-434); RBC 2.95 M/mm3 (3.60-5.2); WHITE BLOOD COUNT 7.7 K/mm3 (4.0-10.0)
[2023-06-15 10:01] LABS: CALCIUM 9.9 mg/dL (8.5-10.1)
[2023-06-15 10:02] LABS: ALBUMIN 2.8 g/dl (3.4-5.0); BLOOD UREA NITROGEN 20.8 mg/dL (7-18); MAGNESIUM 2.1 mg/dL (1.8-2.4)
[2023-06-15 10:05] LABS: CREATININE 4.7 mg/dL (0.55-1.3)
[2023-06-15 10:07] LABS: BILIRUBIN,TOTAL 0.2 mg/dL (0.2-1); TOT PROT 7.9 g/dl (6.4-8.2)
[2023-06-15] MEDS: POLYETHYLENE GLYCOL (HEALTHYLAX) 3350 17 GM PACKET GT SCH ×2 (10:48→22:22)
[2023-06-15] MEDS: levETIRAcetam 500 MG/5 ML ORAL SOLUTION (UNIT-DOSE CUPS) PEG SCH ×2 (10:48→22:20)
[2023-06-15] MEDS: APIXABAN 5 MG TABLET PEG SCH ×2 (10:49→22:18)
[2023-06-15] MEDS: PANTOPRAZOLE SODIUM 40 MG VIAL IVPUSH SCH ×2 (10:49→22:19)
[2023-06-15] MEDS: valACYclovir HCL 500 MG TABLET (FP) PEG SCH (10:49)
[2023-06-15] MEDS: ATORVASTATIN CA 40 MG TABLET (FP) PEG SCH (22:19)
[2023-06-16] MEDS: levETIRAcetam 500 MG/5 ML ORAL SOLUTION (UNIT-DOSE CUPS) PEG SCH ×2 (11:07→23:40)
[2023-06-16] MEDS: POLYETHYLENE GLYCOL (HEALTHYLAX) 3350 17 GM PACKET GT SCH ×2 (11:08→23:41)
[2023-06-16] MEDS: APIXABAN 5 MG TABLET PEG SCH ×2 (11:08→23:38)
[2023-06-16] MEDS: valACYclovir HCL 500 MG TABLET (FP) PEG SCH (11:09)
[2023-06-16] MEDS: PANTOPRAZOLE SODIUM 40 MG VIAL IVPUSH SCH ×2 (11:11→23:39)
[2023-06-16 11:13] LABS: BASO % 0.3 % (0-2.0); EOS % 2.6 % (0-4.5); HEMATOCRIT 26.9 % (32.4-45.2); HEMOGLOBIN 8.7 GM/dL (10.7-15.3); LYMPH % 9.8 % (8-40); MCH 28.9 pg (25.7-33.7); MCHC 32.2 g/dl (32.0-36.0); MEAN CELL VOLUME 89.9 fl (80-96); MEAN PLT VOLUME 8.1 fl (7.5-11.1); MONO % 6.5 % (3.8-10.2); NEUT % 80.8 % (42.8-82.8); PLATELET COUNT 406 10^3/uL (134-434); RDW 18.6 % (11.6-15.6); WHITE BLOOD COUNT 11.1 K/mm3 (4.0-10.0)
[2023-06-16 11:42] LABS: POTASSIUM 3.9 mmol/L (3.5-5.1)
[2023-06-16 11:49] LABS: BLOOD UREA NITROGEN 34.8 mg/dL (7-18)
[2023-06-16 11:50] LABS: ALBUMIN 2.9 g/dl (3.4-5.0); CREATININE 6.8 mg/dL (0.55-1.3); MAGNESIUM 2.3 mg/dL (1.8-2.4)
[2023-06-16 11:52] LABS: TOT PROT 8.1 g/dl (6.4-8.2)
[2023-06-16 11:53] LABS: BILIRUBIN,TOTAL 0.2 mg/dL (0.2-1)
[2023-06-16] MEDS: ATORVASTATIN CA 40 MG TABLET (FP) PEG SCH (23:39)
[2023-06-17] MEDS: valACYclovir HCL 500 MG TABLET (FP) PEG SCH (13:02)
[2023-06-17] MEDS: LACTOBACILLUS ACIDOPHILUS 1 TABLET PO SCH (13:02)
[2023-06-17] MEDS: POLYETHYLENE GLYCOL (HEALTHYLAX) 3350 17 GM PACKET GT SCH ×2 (13:02→21:59)
[2023-06-17] MEDS: PANTOPRAZOLE SODIUM 40 MG VIAL IVPUSH SCH ×2 (13:02→21:59)
[2023-06-17] MEDS: levETIRAcetam 500 MG/5 ML ORAL SOLUTION (UNIT-DOSE CUPS) PEG SCH ×2 (13:02→22:01)
[2023-06-17] MEDS: APIXABAN 5 MG TABLET PEG SCH ×2 (13:02→22:00)
[2023-06-17] MEDS ORDERED: EPOETIN ALFA-EPBX 4,000 UNIT/ML VIAL IVPUSH ONE (13:45)
[2023-06-17 15:27] LABS: BASO % 0.2 % (0-2.0); EOS % 1.1 % (0-4.5); HEMATOCRIT 24.1 % (32.4-45.2); HEMOGLOBIN 7.8 GM/dL (10.7-15.3); LYMPH % 5.4 % (8-40); MCH 28.9 pg (25.7-33.7); MCHC 32.5 g/dl (32.0-36.0); MEAN PLT VOLUME 7.3 fl (7.5-11.1); MONO % 4.4 % (3.8-10.2); NEUT % 88.9 % (42.8-82.8); PLATELET COUNT 349 10^3/uL (134-434); RDW 17.9 % (11.6-15.6); WHITE BLOOD COUNT 13.7 K/mm3 (4.0-10.0)
[2023-06-17] MEDS ORDERED: SODIUM CHLORIDE 250 ML IV PRN (16:27)
[2023-06-17 16:31] LABS: BILIRUBIN,TOTAL 0.2 mg/dL (0.2-1); BLOOD UREA NITROGEN 11.4 mg/dL (7-18); CALCIUM 8.5 mg/dL (8.5-10.1); CREATININE 3.3 mg/dL (0.55-1.3); MAGNESIUM 1.8 mg/dL (1.8-2.4); POTASSIUM 3.2 mmol/L (3.5-5.1); TOT PROT 7.8 g/dl (6.4-8.2)
[2023-06-17] MEDS: ATORVASTATIN CA 40 MG TABLET (FP) PEG SCH (21:59)
[2023-06-18] MEDS: valACYclovir HCL 500 MG TABLET (FP) PEG SCH (09:26)
[2023-06-18] MEDS: levETIRAcetam 500 MG/5 ML ORAL SOLUTION (UNIT-DOSE CUPS) PEG SCH ×2 (09:26→23:55)
[2023-06-18] MEDS: APIXABAN 5 MG TABLET PEG SCH ×2 (09:26→23:55)
[2023-06-18] MEDS: LACTOBACILLUS ACIDOPHILUS 1 TABLET PO SCH (09:26)
[2023-06-18] MEDS: PANTOPRAZOLE SODIUM 40 MG VIAL IVPUSH SCH (09:26)
[2023-06-18] MEDS: POLYETHYLENE GLYCOL (HEALTHYLAX) 3350 17 GM PACKET GT SCH (10:12)
[2023-06-18] MEDS ORDERED: POTASSIUM CHLORIDE ORAL LIQUID 20 MEQ/15 ML GT ONE (12:22)
[2023-06-18] MEDS ORDERED: FAMOTIDINE 20 MG/2.5 ML ORAL LIQUID PEG SCH (14:00)
[2023-06-18] MEDS ORDERED: BANATROL PLUS POWDER PACKET PO SCH (14:00)
[2023-06-18] MEDS: BANATROL PLUS POWDER PACKET GT SCH ×2 (15:10→23:55)
[2023-06-18 15:11] VITALS: RESP 18
[2023-06-18 16:43] LABS: BASO % 0.4 % (0-2.0); EOS % 1.7 % (0-4.5); HEMATOCRIT 24.8 % (32.4-45.2); HEMOGLOBIN 8.3 GM/dL (10.7-15.3); LYMPH % 10.1 % (8-40); MCH 29.7 pg (25.7-33.7); MCHC 33.3 g/dl (32.0-36.0); MEAN PLT VOLUME 8.5 fl (7.5-11.1); MONO % 7.5 % (3.8-10.2); NEUT % 80.3 % (42.8-82.8); PLATELET COUNT 360 10^3/uL (134-434); RBC 2.79 M/mm3 (3.60-5.2); RDW 17.6 % (11.6-15.6); WHITE BLOOD COUNT 10.2 K/mm3 (4.0-10.0)
[2023-06-18 16:46] LABS: POTASSIUM 3.3 mmol/L (3.5-5.1)
[2023-06-18 16:50] LABS: ALBUMIN 2.8 g/dl (3.4-5.0); CALCIUM 9.2 mg/dL (8.5-10.1)
[2023-06-18 16:53] LABS: CREATININE 5.3 mg/dL (0.55-1.3)
[2023-06-18 16:54] LABS: BILIRUBIN,TOTAL 0.2 mg/dL (0.2-1); TOT PROT 7.3 g/dl (6.4-8.2)
[2023-06-18] MEDS ORDERED: SODIUM CHLORIDE 250 ML IV PRN (21:08)
[2023-06-18 22:32] VITALS: BP 139/81; PULSE 93; TEMP 97.7
[2023-06-18] MEDS: ATORVASTATIN CA 40 MG TABLET (FP) PEG SCH (23:55)
[2023-06-19] MEDS ORDERED: EPOETIN ALFA-EPBX 4,000 UNIT/ML VIAL SQ ONE (21:08)
== END 2023-06-19 03:01 | DRG 377 ==
LOC: JER 12:20 → JERBED 15:14 → J4W 06-10 11:30 → J8W 06-13 16:58
PROVIDERS: ADMIT Internal Medicine; ATTEND Nurse Practitioner Family
PROC: 30233N1 Transfusion of Nonautologous Red Blood Cells into Peripheral Vein, Percutaneous Approach (ICD-10-PCS; 2023-06-09)
PROC: 5A1D70Z Performance of Urinary Filtration, Intermittent, Less than 6 Hours Per Day (ICD-10-PCS; 2023-06-09)
PROC: 0DJ08ZZ Inspection of Upper Intestinal Tract, Via Natural or Artificial Opening Endoscopic (ICD-10-PCS; principal; 2023-06-13 14:00)
DX: K29.71 Gastritis, unspecified, with bleeding (principal); N18.6 End stage renal disease; R53.2 Functional quadriplegia; I12.0 Hypertensive chronic kidney disease with stage 5 chronic kidney disease or end stage renal disease; J98.11 Atelectasis; I31.39 Other pericardial effusion (noninflammatory); D62 Acute posthemorrhagic anemia; J90 Pleural effusion, not elsewhere classified; E03.9 Hypothyroidism, unspecified; D64.9 Anemia, unspecified; E78.5 Hyperlipidemia, unspecified; Z99.2 Dependence on renal dialysis; G47.33 Obstructive sleep apnea (adult) (pediatric); Z93.1 Gastrostomy status; Z93.0 Tracheostomy status; I69.320 Aphasia following cerebral infarction; E87.6 Hypokalemia; Z98.2 Presence of cerebrospinal fluid drainage device; I48.0 Paroxysmal atrial fibrillation; I95.89 Other hypotension; K29.80 Duodenitis without bleeding; R56.9 Unspecified convulsions
CPT/HCPCS: 0241U-QW; 36415; 36430; 71045-TC-FY; 80048; 80053; 82272; 82550; 82553; 83605; 83735; 83880; 84100; 84484; 85025; 85027; 85610; 85730; 86704; 86705; 86803; 86850; 86870; 86900; 86901; 86902; 86922; 87040; 87340; 87517; 87635; 93005; 93010; 93306-TC; 97116-GP; 97161-GP; 99285-25; P9058; Q5106

== ENCOUNTER 2023-07-24 17:56 | Inpatient (IN) | payer OTHER ==
[2023-07-24] MEDS ORDERED: SODIUM CHLORIDE 0.9% 500 ML INFUS.BAG IV ONE ×2 (18:23→20:45)
[2023-07-24 19:06] LABS: VENOUS BASE EXCESS -0.1 mmol/L (-2-2); VENOUS PH 7.34 (7.310-7.410)
[2023-07-24 19:08] LABS: HEMATOCRIT 22.9 % (32.4-45.2); HEMOGLOBIN 7.6 GM/dL (10.7-15.3); MCH 28.8 pg (25.7-33.7); MCHC 33.3 g/dl (32.0-36.0); MEAN CELL VOLUME 86.3 fl (80-96); MEAN PLT VOLUME 9.1 fl (7.5-11.1); PLATELET COUNT 275 10^3/uL (134-434); RBC 2.65 M/mm3 (3.60-5.2); RDW 18.6 % (11.6-15.6); WHITE BLOOD COUNT 23.7 K/mm3 (4.0-10.0)
[2023-07-24 19:20] LABS: INR 1.6 (0.83-1.09); PROTHROMBIN TIME (PATIENT) 18.5 SEC (9.7-13.0)
[2023-07-24 19:22] LABS: ACTIVATED PTT 41.5 SECONDS (25.2-36.5)
[2023-07-24 19:27] LABS: CHLORIDE 98 mmol/L (98-107); POTASSIUM 5.6 mmol/L (3.5-5.1); SODIUM 136 mmol/L (136-145)
[2023-07-24 19:29] LABS: CALCIUM 10.1 mg/dL (8.5-10.1)
[2023-07-24 19:30] LABS: ANION GAP 13 mmol/L (4-13); CO2 24 mmol/L (21-32); GLUCOSE,RANDOM 120 mg/dL (74-106)
[2023-07-24 19:33] LABS: SGOT/AST 132 U/L (15-37); SGPT/ALT 65 U/L (13-61)
[2023-07-24 19:35] LABS: ADD RBC MORPHOLOGY YES; BILIRUBIN,TOTAL 0.5 mg/dL (0.2-1)
[2023-07-24 19:36] LABS: ALK PHOS 182 U/L (45-117)
[2023-07-24] MEDS ORDERED: PIPERACILLIN/TAZOB 2.25 GM 2.25 GM in DEXTROSE 5%-WATER - 50 ML IVPB ONE (21:05)
[2023-07-24] MEDS ORDERED: VANCOMYCIN 1,000 MG in DEXTROSE 5%-WATER - 250 ML IVPB ONE (21:07)
[2023-07-24] MEDS ORDERED: PIPERACILLIN/TAZOB 2.25 GM 2.25 GM/50 ML BAG IVPB ONE (21:10)
[2023-07-24] MEDS ORDERED: CLOPIDOGREL BISULFATE 300 MG TABLET PO ONE (21:10)
[2023-07-24] MEDS ORDERED: ASPIRIN 325 MG TABLET PO ONE (21:10)
[2023-07-24] MEDS ORDERED: VANCOMYCIN 1 GRAM (PRE-DOCKED) 1,000 MG/250 ML BAG IVPB ONE (21:11)
[2023-07-24] MEDS ORDERED: ACETAMINOPHEN 1000 MG/100 ML BAG IVPB ONE (21:12)
[2023-07-24] MEDS ORDERED: FENTANYL CITRATE/PF 50 MCG/ML VIAL ONE (21:21)
[2023-07-24 21:22] LABS: ANISOCYTOSIS 1+; MACROCYTOSIS 1+; PLATELET ESTIMATE NORMAL
[2023-07-24] MEDS ORDERED: ACETAMINOPHEN INJECTION 100 ML IVPB ONE (21:22)
[2023-07-24] MEDS ORDERED: ASPIRIN 81 MG CHEWABLE TABLETS ONE (21:22)
[2023-07-25 00:42] LABS: IRON SERUM 59 ug/dL (50-175); TOTAL IRON BINDING CAPACITY 195 ug/dL (250-450)
[2023-07-25] MEDS ORDERED: MAGNESIUM HYDROX 2400MG/30ML ORAL SUSPENSION 30 ML CUP PO PRN (04:13)
[2023-07-25] MEDS ORDERED: BISACODYL 10 MG SUPP.RECT PR PRN (04:13)
[2023-07-25] MEDS ORDERED: SIMETHICONE 80 MG TAB.CHEW (FP) NR PRN (04:13)
[2023-07-25 08:02] LABS: HEMOGLOBIN 7.4 GM/dL (10.7-15.3); MCH 29.5 pg (25.7-33.7); MCHC 33.7 g/dl (32.0-36.0); MEAN CELL VOLUME 87.5 fl (80-96); MEAN PLT VOLUME 8.9 fl (7.5-11.1); PLATELET COUNT 240 10^3/uL (134-434); RBC 2.52 M/mm3 (3.60-5.2); RDW 17.4 % (11.6-15.6); WHITE BLOOD COUNT 19.5 K/mm3 (4.0-10.0)
[2023-07-25 08:20] LABS: CHLORIDE 101 mmol/L (98-107); POTASSIUM 3.7 mmol/L (3.5-5.1); SODIUM 138 mmol/L (136-145)
[2023-07-25 08:23] LABS: CALCIUM 9.5 mg/dL (8.5-10.1)
[2023-07-25 08:24] LABS: ALBUMIN 1.9 g/dl (3.4-5.0); ANION GAP 12 mmol/L (4-13); CO2 25 mmol/L (21-32); GLUCOSE,RANDOM 100 mg/dL (74-106); MAGNESIUM 2.6 mg/dL (1.8-2.4)
[2023-07-25 08:27] LABS: PHOSPHOROUS 1.9 mg/dL (2.5-4.9); SGOT/AST 59 U/L (15-37); SGPT/ALT 54 U/L (13-61)
[2023-07-25 08:28] LABS: BILIRUBIN,TOTAL 0.4 mg/dL (0.2-1); TOT PROT 7.1 g/dl (6.4-8.2)
[2023-07-25 08:30] LABS: ALK PHOS 137 U/L (45-117); BLOOD UREA NITROGEN 138.6 mg/dL (7-18); CREATININE 10.2 mg/dL (0.55-1.3)
[2023-07-25 08:58] LABS: ANISOCYTOSIS 1+; TARGET CELLS 1+
[2023-07-25] MEDS ORDERED: levETIRAcetam 500 MG/5 ML ORAL SOLUTION (UNIT-DOSE CUPS) PEG SCH (10:00)
[2023-07-25] MEDS ORDERED: SERTRALINE HCL 50 MG TABLET (FP) PEG SCH (10:00)
[2023-07-25] MEDS ORDERED: SODIUM CHLORIDE 250 ML IV PRN (10:07)
[2023-07-25] MEDS ORDERED: PIPERACILLIN/TAZOB 2.25 GM 2.25 GM in DEXTROSE 5%-WATER - 50 ML IVPB SCH ×2 (11:30→18:00)
[2023-07-25] MEDS ORDERED: levETIRAcetam 500 MG/5 ML INJECTION VIAL IVPB ONE ×2 (11:33→22:22)
[2023-07-25] MEDS: FAMOTIDINE 10 MG TABLET PEG SCH (11:38)
[2023-07-25] MEDS: APIXABAN 5 MG TABLET PEG SCH ×2 (11:38→22:36)
[2023-07-25] MEDS: valACYclovir HCL 500 MG TABLET (FP) PEG SCH (11:39)
[2023-07-25] MEDS: POLYETHYLENE GLYCOL (HEALTHYLAX) 3350 17 GM PACKET GT SCH ×2 (11:39→22:36)
[2023-07-25] MEDS: levETIRAcetam 500 MG/5 ML INJECTION VIAL IVPB SCH ×2 (11:40→22:36)
[2023-07-25] MEDS ORDERED: EPOETIN ALFA-EPBX 4,000 UNIT/ML VIAL IVPUSH ONE (12:00)
[2023-07-25] MEDS ORDERED: EPOETIN ALFA-EPBX 4,000 UNIT/ML VIAL SQ ONE (14:27)
[2023-07-25] MEDS: ALBUMIN HUMAN 25% 12.5 GM/50 ML VIAL IV SCH ×2 (14:44→14:45)
[2023-07-25] MEDS ORDERED: PIPERACILLIN/TAZOB 2.25 GM 2.25 GM/50 ML BAG IVPB ONE (16:12)
[2023-07-25] MEDS ORDERED: APIXABAN 5 MG TABLET ONE (22:22)
[2023-07-25] MEDS ORDERED: ATORVASTATIN CA 40 MG TABLET (FP) ONE (22:22)
[2023-07-25] MEDS ORDERED: POLYETHYLENE GLYCOL (HEALTHYLAX) 3350 17 GM PACKET ONE (22:22)
[2023-07-25] MEDS: ATORVASTATIN CA 40 MG TABLET (FP) PEG SCH (22:36)
[2023-07-26] MEDS ORDERED: PIPERACILLIN/TAZOB 2.25 GM 2.25 GM/50 ML BAG IVPB ONE ×2 (00:17→08:38)
[2023-07-26] MEDS: PIPERACILLIN/TAZOB 2.25 GM 2.25 GM in DEXTROSE 5%-WATER - 50 ML IVPB SCH ×3 (01:06→17:38)
[2023-07-26] MEDS ORDERED: ACETAMINOPHEN 1000 MG/100 ML BAG IVPB ONE (01:44)
[2023-07-26 08:14] LABS: POTASSIUM 3.4 mmol/L (3.5-5.1)
[2023-07-26 08:17] LABS: BASO % 0.5 % (0-2.0); CALCIUM 9.1 mg/dL (8.5-10.1); EOS % 0.9 % (0-4.5); HEMATOCRIT 22.5 % (32.4-45.2); HEMOGLOBIN 7.5 GM/dL (10.7-15.3); LYMPH % 5.1 % (8-40); MCH 29.3 pg (25.7-33.7); MCHC 33.1 g/dl (32.0-36.0); MEAN CELL VOLUME 88.3 fl (80-96); MEAN PLT VOLUME 9.2 fl (7.5-11.1); MONO % 13.2 % (3.8-10.2); NEUT % 80.3 % (42.8-82.8); PLATELET COUNT 237 10^3/uL (134-434); RBC 2.55 M/mm3 (3.60-5.2); RDW 17.7 % (11.6-15.6); WHITE BLOOD COUNT 16.1 K/mm3 (4.0-10.0)
[2023-07-26 08:19] LABS: ALBUMIN 1.9 g/dl (3.4-5.0)
[2023-07-26 08:21] LABS: CREATININE 5.7 mg/dL (0.55-1.3)
[2023-07-26 08:23] LABS: BILIRUBIN,TOTAL 0.4 mg/dL (0.2-1)
[2023-07-26 08:31] LABS: BLOOD UREA NITROGEN 63.3 mg/dL (7-18)
[2023-07-26] MEDS ORDERED: SODIUM CHLORIDE 0.9% 500 ML INFUS.BAG IV ONE (08:59)
[2023-07-26] MEDS ORDERED: PANTOPRAZOLE SODIUM 40 MG VIAL IVPUSH ONE ×2 (09:05)
[2023-07-26] MEDS ORDERED: PANTOPRAZOLE SODIUM 80 MG in SODIUM CHLORIDE 100 ML IVPB SCH (09:15)
[2023-07-26] MEDS ORDERED: PANTOPRAZOLE SODIUM 40 MG VIAL ONE (09:24)
[2023-07-26] MEDS ORDERED: PANTOPRAZOLE SODIUM 160 MG in SODIUM CHLORIDE 290 ML IVPB SCH (10:00)
[2023-07-26 10:30] LABS: HEMATOCRIT 21.4 % (32.4-45.2); MCH 28.7 pg (25.7-33.7); MCHC 32.6 g/dl (32.0-36.0); MEAN CELL VOLUME 87.9 fl (80-96); MEAN PLT VOLUME 9.2 fl (7.5-11.1); PLATELET COUNT 230 10^3/uL (134-434); RBC 2.44 M/mm3 (3.60-5.2); RDW 17.5 % (11.6-15.6); WHITE BLOOD COUNT 15.3 K/mm3 (4.0-10.0)
[2023-07-26] MEDS: valACYclovir HCL 500 MG TABLET (FP) PEG SCH (10:39)
[2023-07-26] MEDS: FAMOTIDINE 10 MG TABLET PEG SCH (10:39)
[2023-07-26] MEDS: POLYETHYLENE GLYCOL (HEALTHYLAX) 3350 17 GM PACKET GT SCH ×2 (10:39→21:12)
[2023-07-26 11:01] LABS: ANISOCYTOSIS 0; HELMET CELLS 0; HOWELL-JOLLY BODIES 0; MACROCYTOSIS 0; OVALOCYTE 0; ROULEAU 0; SICKELED CELLS 0; TARGET CELLS 0; TEAR DROP CELLS 0; TOXIC GRANULATION 0
[2023-07-26 12:16] LABS: VENOUS BASE EXCESS 0.6 mmol/L (-2-2); VENOUS O2 SATURATION 71.5 % (70-80); VENOUS PCO2 46.7 mmHg (38-52); VENOUS PH 7.366 (7.310-7.410)
[2023-07-26] MEDS: levETIRAcetam 500 MG/5 ML INJECTION VIAL IVPB SCH ×2 (12:33→21:12)
[2023-07-26 15:35] LABS: HEMATOCRIT 28.7 % (32.4-45.2); HEMOGLOBIN 9.6 GM/dL (10.7-15.3); MCH 29.2 pg (25.7-33.7); MCHC 33.6 g/dl (32.0-36.0); PLATELET COUNT 277 10^3/uL (134-434); RDW 17.8 % (11.6-15.6); WHITE BLOOD COUNT 16.7 K/mm3 (4.0-10.0)
[2023-07-26 20:57] LABS: HEMATOCRIT 24.1 % (32.4-45.2); HEMOGLOBIN 8.1 GM/dL (10.7-15.3); MCH 29.2 pg (25.7-33.7); MCHC 33.6 g/dl (32.0-36.0); MEAN PLT VOLUME 8.6 fl (7.5-11.1); PLATELET COUNT 245 10^3/uL (134-434); RBC 2.78 M/mm3 (3.60-5.2); RDW 17.9 % (11.6-15.6); WHITE BLOOD COUNT 14.7 K/mm3 (4.0-10.0)
[2023-07-26] MEDS: PANTOPRAZOLE SODIUM 40 MG VIAL IVPUSH SCH (21:12)
[2023-07-26] MEDS: ATORVASTATIN CA 40 MG TABLET (FP) PEG SCH (21:15)
[2023-07-27] MEDS: PIPERACILLIN/TAZOB 2.25 GM 2.25 GM in DEXTROSE 5%-WATER - 50 ML IVPB SCH ×3 (01:12→17:21)
[2023-07-27] MEDS ORDERED: VANCOMYCIN/WATER FOR INJ (PEG) 1,000 MG/200 ML BAG IVPB ONE (06:45)
[2023-07-27 08:15] LABS: HEMATOCRIT 21.6 % (32.4-45.2); HEMOGLOBIN 7.4 GM/dL (10.7-15.3); MCH 29.7 pg (25.7-33.7); MEAN CELL VOLUME 87.2 fl (80-96); MEAN PLT VOLUME 9.2 fl (7.5-11.1); PLATELET COUNT 238 10^3/uL (134-434); RBC 2.48 M/mm3 (3.60-5.2); WHITE BLOOD COUNT 14.1 K/mm3 (4.0-10.0)
[2023-07-27 08:22] LABS: POTASSIUM 3.8 mmol/L (3.5-5.1)
[2023-07-27 08:26] LABS: BLOOD UREA NITROGEN 78.2 mg/dL (7-18); MAGNESIUM 2.3 mg/dL (1.8-2.4)
[2023-07-27 08:29] LABS: PHOSPHOROUS 4.7 mg/dL (2.5-4.9)
[2023-07-27] MEDS: levETIRAcetam 500 MG/5 ML INJECTION VIAL IVPB SCH ×2 (10:29→21:20)
[2023-07-27] MEDS: POLYETHYLENE GLYCOL (HEALTHYLAX) 3350 17 GM PACKET GT SCH ×2 (10:29→21:20)
[2023-07-27] MEDS: PANTOPRAZOLE SODIUM 40 MG VIAL IVPUSH SCH (10:29)
[2023-07-27] MEDS: valACYclovir HCL 500 MG TABLET (FP) PEG SCH (11:26)
[2023-07-27 12:26] VITALS: BMI 23.4
[2023-07-27] MEDS: PANTOPRAZOLE SODIUM 80 MG in SODIUM CHLORIDE 100 ML IVPB SCH (17:21)
[2023-07-27] MEDS ORDERED: LIDOCAINE 2%/EPINEPHRINE 1:200,000/PF 20 ML VIAL IJ ONE (19:30)
[2023-07-27] MEDS: ATORVASTATIN CA 40 MG TABLET (FP) PEG SCH (21:20)
[2023-07-28] MEDS: PANTOPRAZOLE SODIUM 80 MG in SODIUM CHLORIDE 100 ML IVPB SCH ×3 (01:30→10:47)
[2023-07-28] MEDS: PIPERACILLIN/TAZOB 2.25 GM 2.25 GM in DEXTROSE 5%-WATER - 50 ML IVPB SCH ×3 (01:40→17:11)
[2023-07-28] MEDS: levETIRAcetam 500 MG/5 ML INJECTION VIAL IVPB SCH ×2 (09:06→21:38)
[2023-07-28] MEDS: POLYETHYLENE GLYCOL (HEALTHYLAX) 3350 17 GM PACKET GT SCH (09:06)
[2023-07-28] MEDS: valACYclovir HCL 500 MG TABLET (FP) PEG SCH (09:06)
[2023-07-28 11:20] LABS: BASO % 0.4 % (0-2.0); EOS % 1.3 % (0-4.5); HEMATOCRIT 21.3 % (32.4-45.2); HEMOGLOBIN 7.3 GM/dL (10.7-15.3); LYMPH % 6.5 % (8-40); MCH 30.2 pg (25.7-33.7); MCHC 34.3 g/dl (32.0-36.0); MEAN CELL VOLUME 87.9 fl (80-96); MEAN PLT VOLUME 8.4 fl (7.5-11.1); MONO % 8.8 % (3.8-10.2); PLATELET COUNT 272 10^3/uL (134-434); RBC 2.42 M/mm3 (3.60-5.2); RDW 18.1 % (11.6-15.6); WHITE BLOOD COUNT 13.3 K/mm3 (4.0-10.0)
[2023-07-28 11:43] LABS: CHLORIDE 104 mmol/L (98-107); POTASSIUM 3.8 mmol/L (3.5-5.1); SODIUM 141 mmol/L (136-145)
[2023-07-28 11:51] LABS: ALBUMIN 1.7 g/dl (3.4-5.0); ANION GAP 15 mmol/L (4-13); BLOOD UREA NITROGEN 95.4 mg/dL (7-18); CALCIUM 8.5 mg/dL (8.5-10.1); CO2 22 mmol/L (21-32); MAGNESIUM 2.4 mg/dL (1.8-2.4)
[2023-07-28 11:52] LABS: GLUCOSE,RANDOM 89 mg/dL (74-106)
[2023-07-28 11:54] LABS: PHOSPHOROUS 6.3 mg/dL (2.5-4.9); SGPT/ALT 36 U/L (13-61)
[2023-07-28 11:55] LABS: SGOT/AST 29 U/L (15-37)
[2023-07-28 11:56] LABS: BILIRUBIN,TOTAL 0.5 mg/dL (0.2-1); TOT PROT 6.8 g/dl (6.4-8.2)
[2023-07-28 11:58] LABS: ALK PHOS 119 U/L (45-117)
[2023-07-28 12:07] LABS: CREATININE 8.8 mg/dL (0.55-1.3)
[2023-07-28 13:17] LABS: GAMMA GLUTAMYL TRANSPEPTIDASE 108 U/L (5-85)
[2023-07-28] MEDS: DAPTOMYCIN 600 MG in SODIUM CHLORIDE 50 ML IVPB SCH (13:41)
[2023-07-28] MEDS ORDERED: SODIUM CHLORIDE 250 ML IV PRN (14:51)
[2023-07-28] MEDS ORDERED: EPOETIN ALFA-EPBX 4,000 UNIT/ML VIAL IVPUSH ONE (15:00)
[2023-07-28 18:44] LABS: HEMATOCRIT 20.8 % (32.4-45.2); MCH 29.2 pg (25.7-33.7); MCHC 33.7 g/dl (32.0-36.0); MEAN CELL VOLUME 86.8 fl (80-96); MEAN PLT VOLUME 8.1 fl (7.5-11.1); PLATELET COUNT 278 10^3/uL (134-434); RBC 2.39 M/mm3 (3.60-5.2); RDW 17.9 % (11.6-15.6); WHITE BLOOD COUNT 11.4 K/mm3 (4.0-10.0)
[2023-07-28] MEDS: ATORVASTATIN CA 40 MG TABLET (FP) PEG SCH (21:38)
[2023-07-29 01:19] LABS: HEMATOCRIT 20.2 % (32.4-45.2); HEMOGLOBIN 6.6 GM/dL (10.7-15.3); MCH 28.5 pg (25.7-33.7); MCHC 32.5 g/dl (32.0-36.0); MEAN CELL VOLUME 87.8 fl (80-96); MEAN PLT VOLUME 8.4 fl (7.5-11.1); PLATELET COUNT 292 10^3/uL (134-434); RDW 17.7 % (11.6-15.6); WHITE BLOOD COUNT 11.3 K/mm3 (4.0-10.0)
[2023-07-29] MEDS: levETIRAcetam 500 MG/5 ML INJECTION VIAL IVPB SCH ×2 (09:34→21:56)
[2023-07-29] MEDS: PIPERACILLIN/TAZOB 2.25 GM 2.25 GM in DEXTROSE 5%-WATER - 50 ML IVPB SCH ×2 (10:40→19:49)
[2023-07-29 11:02] LABS: HEMATOCRIT 25.7 % (32.4-45.2); HEMOGLOBIN 8.4 GM/dL (10.7-15.3); MCH 28.3 pg (25.7-33.7); MCHC 32.5 g/dl (32.0-36.0); MEAN PLT VOLUME 8.8 fl (7.5-11.1); PLATELET COUNT 299 10^3/uL (134-434); RBC 2.95 M/mm3 (3.60-5.2); RDW 18.6 % (11.6-15.6)
[2023-07-29 11:04] LABS: MEAN CELL VOLUME 86.9 fl (80-96)
[2023-07-29] MEDS: POLYETHYLENE GLYCOL (HEALTHYLAX) 3350 17 GM PACKET GT SCH (15:32)
[2023-07-29] MEDS: valACYclovir HCL 500 MG TABLET (FP) PEG SCH (16:58)
[2023-07-29] MEDS: ATORVASTATIN CA 40 MG TABLET (FP) PEG SCH (21:57)
[2023-07-30] MEDS: PIPERACILLIN/TAZOB 2.25 GM 2.25 GM in DEXTROSE 5%-WATER - 50 ML IVPB SCH ×3 (01:59→17:15)
[2023-07-30] MEDS ORDERED: SODIUM CHLORIDE 250 ML IV PRN (08:36)
[2023-07-30] MEDS ORDERED: EPOETIN ALFA-EPBX 4,000 UNIT/ML VIAL IVPUSH ONE (08:45)
[2023-07-30 09:32] LABS: HEMATOCRIT 25.2 % (32.4-45.2); HEMOGLOBIN 8.2 GM/dL (10.7-15.3); MCH 28.1 pg (25.7-33.7); MCHC 32.7 g/dl (32.0-36.0); MEAN CELL VOLUME 85.9 fl (80-96); MEAN PLT VOLUME 8.5 fl (7.5-11.1); PLATELET COUNT 351 10^3/uL (134-434); RBC 2.93 M/mm3 (3.60-5.2); WHITE BLOOD COUNT 13.3 K/mm3 (4.0-10.0)
[2023-07-30 10:42] LABS: CHLORIDE 108 mmol/L (98-107); POTASSIUM 3.6 mmol/L (3.5-5.1); SODIUM 140 mmol/L (136-145)
[2023-07-30 10:44] LABS: ANION GAP 8 mmol/L (4-13); BLOOD UREA NITROGEN 79.9 mg/dL (7-18); CALCIUM 8.5 mg/dL (8.5-10.1); CO2 24 mmol/L (21-32); GLUCOSE,RANDOM 114 mg/dL (74-106); MAGNESIUM 2.4 mg/dL (1.8-2.4)
[2023-07-30 10:45] LABS: ALBUMIN 1.6 g/dl (3.4-5.0)
[2023-07-30 10:47] LABS: PHOSPHOROUS 6.5 mg/dL (2.5-4.9); SGPT/ALT 28 U/L (13-61)
[2023-07-30 10:48] LABS: SGOT/AST 28 U/L (15-37)
[2023-07-30 10:49] LABS: BILIRUBIN,TOTAL 0.4 mg/dL (0.2-1); TOT PROT 6.7 g/dl (6.4-8.2)
[2023-07-30 10:53] LABS: ALK PHOS 150 U/L (45-117); CREATININE 9.2 mg/dL (0.55-1.3)
[2023-07-30] MEDS: valACYclovir HCL 500 MG TABLET (FP) PEG SCH (12:05)
[2023-07-30] MEDS: POLYETHYLENE GLYCOL (HEALTHYLAX) 3350 17 GM PACKET GT SCH ×2 (12:28→12:44)
[2023-07-30] MEDS: levETIRAcetam 500 MG/5 ML INJECTION VIAL IVPB SCH ×2 (12:54→21:32)
[2023-07-30] MEDS: DAPTOMYCIN 600 MG in SODIUM CHLORIDE 50 ML IVPB SCH (14:12)
[2023-07-30] MEDS: ATORVASTATIN CA 40 MG TABLET (FP) PEG SCH (21:32)
[2023-07-31] MEDS: PIPERACILLIN/TAZOB 2.25 GM 2.25 GM in DEXTROSE 5%-WATER - 50 ML IVPB SCH ×2 (02:37→10:03)
[2023-07-31 08:40] LABS: BASO % 0.7 % (0-2.0); EOS % 0.8 % (0-4.5); HEMATOCRIT 26.3 % (32.4-45.2); HEMOGLOBIN 8.8 GM/dL (10.7-15.3); LYMPH % 10.8 % (8-40); MCH 28.6 pg (25.7-33.7); MCHC 33.6 g/dl (32.0-36.0); MEAN CELL VOLUME 85.1 fl (80-96); MEAN PLT VOLUME 8.3 fl (7.5-11.1); MONO % 10.1 % (3.8-10.2); NEUT % 77.6 % (42.8-82.8); PLATELET COUNT 318 10^3/uL (134-434); RDW 19.3 % (11.6-15.6); WHITE BLOOD COUNT 12.7 K/mm3 (4.0-10.0)
[2023-07-31 09:07] LABS: POTASSIUM 3.3 mmol/L (3.5-5.1)
[2023-07-31 09:13] LABS: CALCIUM 9.2 mg/dL (8.5-10.1)
[2023-07-31 09:14] LABS: ALBUMIN 1.7 g/dl (3.4-5.0); MAGNESIUM 2.2 mg/dL (1.8-2.4)
[2023-07-31 09:17] LABS: CREATININE 5.4 mg/dL (0.55-1.3); PHOSPHOROUS 3.8 mg/dL (2.5-4.9)
[2023-07-31 09:18] LABS: TOT PROT 6.8 g/dl (6.4-8.2)
[2023-07-31 09:19] LABS: BILIRUBIN,TOTAL 0.4 mg/dL (0.2-1)
[2023-07-31 09:30] LABS: BLOOD UREA NITROGEN 31.4 mg/dL (7-18)
[2023-07-31] MEDS: levETIRAcetam 500 MG/5 ML INJECTION VIAL IVPB SCH ×2 (10:02→23:24)
[2023-07-31] MEDS: POLYETHYLENE GLYCOL (HEALTHYLAX) 3350 17 GM PACKET GT SCH (10:02)
[2023-07-31] MEDS: valACYclovir HCL 500 MG TABLET (FP) PEG SCH (10:04)
[2023-07-31] MEDS: CEFTAROLINE FOSAMIL ACETATE 200 MG in DEXTROSE 5%-WATER - 100 ML IVPB SCH (17:35)
[2023-07-31] MEDS: ATORVASTATIN CA 40 MG TABLET (FP) PEG SCH (23:25)
[2023-08-01] MEDS: CEFTAROLINE FOSAMIL ACETATE 200 MG in DEXTROSE 5%-WATER - 100 ML IVPB SCH ×3 (00:59→18:12)
[2023-08-01] MEDS ORDERED: SODIUM CHLORIDE 250 ML IV PRN (07:15)
[2023-08-01 08:39] LABS: BASO % 0.4 % (0-2.0); EOS % 1.3 % (0-4.5); HEMATOCRIT 26.4 % (32.4-45.2); HEMOGLOBIN 8.6 GM/dL (10.7-15.3); LYMPH % 10.1 % (8-40); MCH 27.9 pg (25.7-33.7); MCHC 32.5 g/dl (32.0-36.0); MEAN CELL VOLUME 85.9 fl (80-96); MEAN PLT VOLUME 8.5 fl (7.5-11.1); MONO % 10.5 % (3.8-10.2); NEUT % 77.7 % (42.8-82.8); PLATELET COUNT 333 10^3/uL (134-434); RBC 3.07 M/mm3 (3.60-5.2); RDW 19.1 % (11.6-15.6); WHITE BLOOD COUNT 12.5 K/mm3 (4.0-10.0)
[2023-08-01] MEDS ORDERED: EPOETIN ALFA-EPBX 4,000 UNIT/ML VIAL IVPUSH ONE (09:00)
[2023-08-01 09:07] LABS: POTASSIUM 3.2 mmol/L (3.5-5.1)
[2023-08-01 09:12] LABS: CALCIUM 8.4 mg/dL (8.5-10.1)
[2023-08-01 09:13] LABS: ALBUMIN 1.6 g/dl (3.4-5.0); BLOOD UREA NITROGEN 38.5 mg/dL (7-18); MAGNESIUM 2.1 mg/dL (1.8-2.4)
[2023-08-01 09:16] LABS: CREATININE 6.9 mg/dL (0.55-1.3); PHOSPHOROUS 5.1 mg/dL (2.5-4.9)
[2023-08-01 09:17] LABS: BILIRUBIN,TOTAL 0.3 mg/dL (0.2-1); TOT PROT 6.8 g/dl (6.4-8.2)
[2023-08-01] MEDS: valACYclovir HCL 500 MG TABLET (FP) PEG SCH (12:13)
[2023-08-01] MEDS: levETIRAcetam 500 MG/5 ML INJECTION VIAL IVPB SCH ×2 (13:44→22:20)
[2023-08-01] MEDS: POLYETHYLENE GLYCOL (HEALTHYLAX) 3350 17 GM PACKET GT SCH (14:00)
[2023-08-01] MEDS: DAPTOMYCIN 600 MG in SODIUM CHLORIDE 50 ML IVPB SCH (14:39)
[2023-08-01] MEDS: ATORVASTATIN CA 40 MG TABLET (FP) PEG SCH (22:21)
[2023-08-02] MEDS: CEFTAROLINE FOSAMIL ACETATE 200 MG in DEXTROSE 5%-WATER - 100 ML IVPB SCH ×3 (06:45→17:14)
[2023-08-02] MEDS ORDERED: SODIUM CHLORIDE 0.9% 500 ML INFUS.BAG IV ONE (09:13)
[2023-08-02] MEDS: POLYETHYLENE GLYCOL (HEALTHYLAX) 3350 17 GM PACKET GT SCH (10:23)
[2023-08-02] MEDS: valACYclovir HCL 500 MG TABLET (FP) PEG SCH (10:23)
[2023-08-02] MEDS: levETIRAcetam 500 MG/5 ML INJECTION VIAL IVPB SCH ×2 (11:49→22:28)
[2023-08-02] MEDS: ATORVASTATIN CA 40 MG TABLET (FP) PEG SCH (22:28)
[2023-08-03] MEDS: CEFTAROLINE FOSAMIL ACETATE 200 MG in DEXTROSE 5%-WATER - 100 ML IVPB SCH ×3 (02:21→17:29)
[2023-08-03] MEDS ORDERED: metoPROLOL SUCCINATE 25 MG TAB.SR.24H (FP) PO SCH (10:00)
[2023-08-03] MEDS: levETIRAcetam 500 MG/5 ML INJECTION VIAL IVPB SCH ×2 (11:35→23:00)
[2023-08-03] MEDS: valACYclovir HCL 500 MG TABLET (FP) PEG SCH (11:36)
[2023-08-03] MEDS: POLYETHYLENE GLYCOL (HEALTHYLAX) 3350 17 GM PACKET GT SCH (11:36)
[2023-08-03 12:51] LABS: BASO % 0.9 % (0-2.0); EOS % 0.9 % (0-4.5); HEMOGLOBIN 8.7 GM/dL (10.7-15.3); LYMPH % 12.1 % (8-40); MCH 29.4 pg (25.7-33.7); MCHC 33.5 g/dl (32.0-36.0); MEAN CELL VOLUME 87.8 fl (80-96); MEAN PLT VOLUME 8.7 fl (7.5-11.1); MONO % 11.3 % (3.8-10.2); NEUT % 74.8 % (42.8-82.8); PLATELET COUNT 314 10^3/uL (134-434); RBC 2.96 M/mm3 (3.60-5.2); RDW 18.9 % (11.6-15.6); WHITE BLOOD COUNT 10.1 K/mm3 (4.0-10.0)
[2023-08-03] MEDS: AMINO ACIDS 4.25%/D5W 1,000 ML IV SCH (13:19)
[2023-08-03] MEDS: DAPTOMYCIN 600 MG in SODIUM CHLORIDE 50 ML IVPB SCH (13:20)
[2023-08-03 13:21] LABS: POTASSIUM 3.7 mmol/L (3.5-5.1)
[2023-08-03 13:26] LABS: CALCIUM 8.7 mg/dL (8.5-10.1)
[2023-08-03 13:27] LABS: ALBUMIN 1.6 g/dl (3.4-5.0); BLOOD UREA NITROGEN 29.6 mg/dL (7-18)
[2023-08-03 13:29] LABS: PHOSPHOROUS 6.8 mg/dL (2.5-4.9)
[2023-08-03 13:30] LABS: CREATININE 6.6 mg/dL (0.55-1.3)
[2023-08-03 13:31] LABS: BILIRUBIN,TOTAL 0.3 mg/dL (0.2-1); TOT PROT 6.8 g/dl (6.4-8.2)
[2023-08-03] MEDS: ATORVASTATIN CA 40 MG TABLET (FP) PEG SCH (23:00)
[2023-08-04] MEDS: CEFTAROLINE FOSAMIL ACETATE 200 MG in DEXTROSE 5%-WATER - 100 ML IVPB SCH ×3 (04:33→18:10)
[2023-08-04 09:03] LABS: BASO % 0.5 % (0-2.0); EOS % 0.9 % (0-4.5); HEMATOCRIT 26.7 % (32.4-45.2); HEMOGLOBIN 8.8 GM/dL (10.7-15.3); LYMPH % 13.5 % (8-40); MCH 29.1 pg (25.7-33.7); MCHC 32.8 g/dl (32.0-36.0); MEAN CELL VOLUME 88.8 fl (80-96); MONO % 10.8 % (3.8-10.2); NEUT % 74.3 % (42.8-82.8); PLATELET COUNT 353 10^3/uL (134-434); RBC 3.01 M/mm3 (3.60-5.2); RDW 18.7 % (11.6-15.6); WHITE BLOOD COUNT 10.6 K/mm3 (4.0-10.0)
[2023-08-04 09:40] LABS: CHLORIDE 101 mmol/L (98-107); POTASSIUM 3.5 mmol/L (3.5-5.1); SODIUM 138 mmol/L (136-145)
[2023-08-04 09:44] LABS: CALCIUM 8.6 mg/dL (8.5-10.1)
[2023-08-04 09:45] LABS: ALBUMIN 1.7 g/dl (3.4-5.0); ANION GAP 11 mmol/L (4-13); BLOOD UREA NITROGEN 44.4 mg/dL (7-18); CO2 25 mmol/L (21-32); GLUCOSE,RANDOM 76 mg/dL (74-106)
[2023-08-04 09:48] LABS: PHOSPHOROUS 6.9 mg/dL (2.5-4.9); SGOT/AST 28 U/L (15-37)
[2023-08-04 09:50] LABS: ALK PHOS 108 U/L (45-117); BILIRUBIN,TOTAL 0.4 mg/dL (0.2-1); TOT PROT 6.9 g/dl (6.4-8.2)
[2023-08-04 09:57] LABS: SGPT/ALT 15 U/L (13-61)
[2023-08-04] MEDS ORDERED: METOPROLOL TARTRATE 25 MG TABLET (FP) PO SCH (10:00)
[2023-08-04] MEDS ORDERED: EPOETIN ALFA-EPBX 4,000 UNIT/ML VIAL IVPUSH ONE (10:00)
[2023-08-04 10:01] LABS: CREATININE 7.8 mg/dL (0.55-1.3)
[2023-08-04] MEDS: METOPROLOL TARTRATE 25 MG TABLET (FP) GT SCH (12:45)
[2023-08-04] MEDS: valACYclovir HCL 500 MG TABLET (FP) PEG SCH (12:45)
[2023-08-04] MEDS: POLYETHYLENE GLYCOL (HEALTHYLAX) 3350 17 GM PACKET GT SCH (12:45)
[2023-08-04] MEDS: AMINO ACIDS 4.25%/D5W 1,000 ML IV SCH (13:01)
[2023-08-04] MEDS: levETIRAcetam 500 MG/5 ML INJECTION VIAL IVPB SCH ×2 (13:23→23:58)
[2023-08-04] MEDS: ATORVASTATIN CA 40 MG TABLET (FP) PEG SCH (23:57)
[2023-08-05] MEDS: CEFTAROLINE FOSAMIL ACETATE 200 MG in DEXTROSE 5%-WATER - 100 ML IVPB SCH ×3 (02:45→17:26)
[2023-08-05] MEDS ORDERED: SODIUM CHLORIDE 250 ML IV PRN (10:12)
[2023-08-05] MEDS: POLYETHYLENE GLYCOL (HEALTHYLAX) 3350 17 GM PACKET GT SCH (10:14)
[2023-08-05] MEDS: METOPROLOL TARTRATE 25 MG TABLET (FP) GT SCH (10:14)
[2023-08-05] MEDS: valACYclovir HCL 500 MG TABLET (FP) PEG SCH (10:14)
[2023-08-05] MEDS: levETIRAcetam 500 MG/5 ML INJECTION VIAL IVPB SCH ×2 (11:17→21:54)
[2023-08-05 12:05] LABS: BASO % 0.4 % (0-2.0); HEMATOCRIT 25.3 % (32.4-45.2); HEMOGLOBIN 7.9 GM/dL (10.7-15.3); LYMPH % 12.1 % (8-40); MCH 28.7 pg (25.7-33.7); MCHC 31.3 g/dl (32.0-36.0); MEAN CELL VOLUME 91.6 fl (80-96); MONO % 12.7 % (3.8-10.2); NEUT % 73.8 % (42.8-82.8); PLATELET COUNT 233 10^3/uL (134-434); RBC 2.76 M/mm3 (3.60-5.2); RDW 19.6 % (11.6-15.6); WHITE BLOOD COUNT 7.3 K/mm3 (4.0-10.0)
[2023-08-05] MEDS: DAPTOMYCIN 600 MG in SODIUM CHLORIDE 50 ML IVPB SCH (14:14)
[2023-08-05] MEDS: ATORVASTATIN CA 40 MG TABLET (FP) PEG SCH (21:54)
[2023-08-06] MEDS: CEFTAROLINE FOSAMIL ACETATE 200 MG in DEXTROSE 5%-WATER - 100 ML IVPB SCH ×3 (03:14→18:25)
[2023-08-06] MEDS: valACYclovir HCL 500 MG TABLET (FP) PEG SCH (10:21)
[2023-08-06] MEDS: POLYETHYLENE GLYCOL (HEALTHYLAX) 3350 17 GM PACKET GT SCH (10:21)
[2023-08-06] MEDS: METOPROLOL TARTRATE 25 MG TABLET (FP) GT SCH (10:21)
[2023-08-06] MEDS ORDERED: EPOETIN ALFA-EPBX 3,000 UNIT/ML VIAL IVPUSH ONE (11:00)
[2023-08-06] MEDS ORDERED: LIDOCAINE HCL 1%, 10 MG/ML (20ML VIAL) ONE (11:19)
[2023-08-06] MEDS ORDERED: HEPARIN NA (PORCINE) 5,000 UNITS/ML 1ML VIAL ONE (11:19)
[2023-08-06 11:36] LABS: POTASSIUM 3.6 mmol/L (3.5-5.1)
[2023-08-06 11:47] LABS: ALBUMIN 1.7 g/dl (3.4-5.0); CALCIUM 8.8 mg/dL (8.5-10.1)
[2023-08-06 11:49] LABS: MAGNESIUM 1.9 mg/dL (1.8-2.4)
[2023-08-06 11:50] LABS: CREATININE 6.4 mg/dL (0.55-1.3); PHOSPHOROUS 4.6 mg/dL (2.5-4.9)
[2023-08-06 11:52] LABS: BILIRUBIN,TOTAL 0.3 mg/dL (0.2-1); BLOOD UREA NITROGEN 28.7 mg/dL (7-18); TOT PROT 7.1 g/dl (6.4-8.2)
[2023-08-06 12:43] LABS: BASO % 0.7 % (0-2.0); EOS % 1.1 % (0-4.5); HEMATOCRIT 25.7 % (32.4-45.2); HEMOGLOBIN 8.5 GM/dL (10.7-15.3); LYMPH % 11.8 % (8-40); MCHC 33.2 g/dl (32.0-36.0); MEAN CELL VOLUME 87.2 fl (80-96); MEAN PLT VOLUME 8.8 fl (7.5-11.1); MONO % 13.6 % (3.8-10.2); NEUT % 72.8 % (42.8-82.8); PLATELET COUNT 252 10^3/uL (134-434); RBC 2.94 M/mm3 (3.60-5.2); RDW 19.3 % (11.6-15.6); WHITE BLOOD COUNT 8.7 K/mm3 (4.0-10.0)
[2023-08-06] MEDS: levETIRAcetam 500 MG/5 ML INJECTION VIAL IVPB SCH ×2 (15:20→22:17)
[2023-08-06] MEDS ORDERED: ceFAZolin SODIUM 1 GM VIAL IVPB ONE (17:29)
[2023-08-06] MEDS ORDERED: PROPOFOL 20 ML ONE (17:29)
[2023-08-06] MEDS ORDERED: LIDOCAINE HCL 1%, 10 MG/ML (20ML VIAL) INF ONE (17:40)
[2023-08-06] MEDS ORDERED: ONDANSETRON 4 MG/2 ML VIAL IVPUSH PRN (17:53)
[2023-08-06] MEDS ORDERED: CEFTAROLINE FOSAMIL IVPB ONE (18:32)
[2023-08-06] MEDS: ATORVASTATIN CA 40 MG TABLET (FP) PEG SCH (22:17)
[2023-08-07] MEDS: CEFTAROLINE FOSAMIL ACETATE 200 MG in DEXTROSE 5%-WATER - 100 ML IVPB SCH ×3 (04:21→17:39)
[2023-08-07 09:22] LABS: BASO % 1.3 % (0-2.0); EOS % 1.4 % (0-4.5); HEMATOCRIT 26.5 % (32.4-45.2); HEMOGLOBIN 8.6 GM/dL (10.7-15.3); LYMPH % 10.1 % (8-40); MCH 29.1 pg (25.7-33.7); MCHC 32.3 g/dl (32.0-36.0); MEAN CELL VOLUME 90.1 fl (80-96); MEAN PLT VOLUME 8.6 fl (7.5-11.1); MONO % 16.2 % (3.8-10.2); PLATELET COUNT 238 10^3/uL (134-434); RBC 2.94 M/mm3 (3.60-5.2); RDW 19.3 % (11.6-15.6); WHITE BLOOD COUNT 7.9 K/mm3 (4.0-10.0)
[2023-08-07 09:51] LABS: POTASSIUM 3.9 mmol/L (3.5-5.1)
[2023-08-07] MEDS: POLYETHYLENE GLYCOL (HEALTHYLAX) 3350 17 GM PACKET GT SCH (09:56)
[2023-08-07 09:57] LABS: BLOOD UREA NITROGEN 18.4 mg/dL (7-18)
[2023-08-07] MEDS: METOPROLOL TARTRATE 25 MG TABLET (FP) GT SCH (09:57)
[2023-08-07] MEDS: levETIRAcetam 500 MG/5 ML INJECTION VIAL IVPB SCH ×2 (09:57→22:42)
[2023-08-07] MEDS: valACYclovir HCL 500 MG TABLET (FP) PEG SCH (09:57)
[2023-08-07 09:58] LABS: CALCIUM 8.9 mg/dL (8.5-10.1)
[2023-08-07 10:00] LABS: CREATININE 4.6 mg/dL (0.55-1.3); PHOSPHOROUS 3.7 mg/dL (2.5-4.9)
[2023-08-07] MEDS ORDERED: DAPTOMYCIN 600 MG in SODIUM CHLORIDE 50 ML IVPB SCH (13:00)
[2023-08-07] MEDS ORDERED: SODIUM CHLORIDE 250 ML IV PRN (18:32)
[2023-08-07] MEDS: ATORVASTATIN CA 40 MG TABLET (FP) PEG SCH (22:42)
[2023-08-08] MEDS: CEFTAROLINE FOSAMIL ACETATE 200 MG in DEXTROSE 5%-WATER - 100 ML IVPB SCH ×2 (02:32→13:30)
[2023-08-08] MEDS ORDERED: EPOETIN ALFA-EPBX 10,000 UNIT/ML VIAL IVPUSH ONE (07:45)
[2023-08-08] MEDS ORDERED: ASPIRIN 81 MG CHEWABLE TABLETS GT SCH (10:00)
[2023-08-08] MEDS: METOPROLOL TARTRATE 25 MG TABLET (FP) GT SCH (12:30)
[2023-08-08] MEDS: levETIRAcetam 500 MG/5 ML INJECTION VIAL IVPB SCH (12:30)
[2023-08-08] MEDS: valACYclovir HCL 500 MG TABLET (FP) PEG SCH (12:30)
[2023-08-08 12:33] VITALS: RESP 16
[2023-08-08] MEDS: POLYETHYLENE GLYCOL (HEALTHYLAX) 3350 17 GM PACKET GT SCH (12:33)
[2023-08-08 14:44] VITALS: TEMP 98.6
[2023-08-08 16:12] VITALS: BP 114/50; PULSE 84
[2023-08-08] MEDS ORDERED: levETIRAcetam 500 MG/5 ML ORAL SOLUTION (UNIT-DOSE CUPS) GT SCH (22:00)
== END 2023-08-08 18:00 | DRG 871 ==
LOC: JER 17:56 → JERBED 22:22 → JICU 07-26 10:03 → J5S 07-29 00:14
PROVIDERS: ADMIT Internal Medicine; ATTEND Internal Medicine
PROC: 30233N1 Transfusion of Nonautologous Red Blood Cells into Peripheral Vein, Percutaneous Approach (ICD-10-PCS; 2023-07-25)
PROC: 0XP Anatomical Regions, Upper Extremities, Removal (ICD-10-PCS; 2023-07-27)
PROC: 05HM33Z Insertion of Infusion Device into Right Internal Jugular Vein, Percutaneous Approach (ICD-10-PCS; principal; 2023-07-28)
PROC: B543ZZA Ultrasonography of Right Jugular Veins, Guidance (ICD-10-PCS; 2023-07-28)
PROC: 5A1D70Z Performance of Urinary Filtration, Intermittent, Less than 6 Hours Per Day (ICD-10-PCS; 2023-07-30)
PROC: 5A1D70Z Performance of Urinary Filtration, Intermittent, Less than 6 Hours Per Day (ICD-10-PCS; 2023-08-01)
PROC: 0D20XUZ Change Feeding Device in Upper Intestinal Tract, External Approach (ICD-10-PCS; 2023-08-04)
PROC: 5A1D70Z Performance of Urinary Filtration, Intermittent, Less than 6 Hours Per Day (ICD-10-PCS; 2023-08-04)
PROC: 05HM33Z Insertion of Infusion Device into Right Internal Jugular Vein, Percutaneous Approach (ICD-10-PCS; 2023-08-06)
PROC: 0JH60XZ Insertion of Tunneled Vascular Access Device into Chest Subcutaneous Tissue and Fascia, Open Approach (ICD-10-PCS; 2023-08-06)
PROC: 5A1D70Z Performance of Urinary Filtration, Intermittent, Less than 6 Hours Per Day (ICD-10-PCS; 2023-08-06)
PROC: 5A1D70Z Performance of Urinary Filtration, Intermittent, Less than 6 Hours Per Day (ICD-10-PCS; 2023-08-08)
DX: A41.02 Sepsis due to Methicillin resistant Staphylococcus aureus (principal); J18.9 Pneumonia, unspecified organism; N18.6 End stage renal disease; R53.2 Functional quadriplegia; T80.211A Bloodstream infection due to central venous catheter, initial encounter; K56.600 Partial intestinal obstruction, unspecified as to cause; K92.2 Gastrointestinal hemorrhage, unspecified; I24.89 Other forms of acute ischemic heart disease; J98.11 Atelectasis; K94.23 Gastrostomy malfunction; I13.2 Hypertensive heart and chronic kidney disease with heart failure and with stage 5 chronic kidney disease, or end stage renal disease; I50.9 Heart failure, unspecified; I48.91 Unspecified atrial fibrillation; I69.320 Aphasia following cerebral infarction; F41.8 Other specified anxiety disorders; I95.9 Hypotension, unspecified; D64.9 Anemia, unspecified; G40.909 Epilepsy, unspecified, not intractable, without status epilepticus; G47.33 Obstructive sleep apnea (adult) (pediatric); E87.6 Hypokalemia; I48.0 Paroxysmal atrial fibrillation; Z99.2 Dependence on renal dialysis; Z93.1 Gastrostomy status; Y83.8 Other surgical procedures as the cause of abnormal reaction of the patient, or of later complication, without mention of misadventure at the time of the procedure; Z74.01 Bed confinement status
CPT/HCPCS: 0241U-QW; 36415; 36430; 49450; 70450-TC; 71045-TC-FY; 74019-TC-FY; 74176-TC; 76000-TC-FY; 76705-TC; 80048; 80053; 82272; 82550; 82553; 82728; 82803; 82962; 82977; 83540; 83550; 83605; 83735; 84100; 84466; 84484; 85025; 85027; 85045; 85610; 85730; 86704; 86706; 86803; 86850; 86900; 86901; 86922; 87040; 87186; 87340; 87635; 93005; 93010; 93306-TC; 93971; 94760; 99291; C1750; C1769; G0480; J0878; J1644; P9058; Q5106